=== PATIENT | male | born 1960 | race Caucasian/White ===

== ENCOUNTER 2021-08-20 02:32 | Inpatient (IN) ==
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
[2021-08-20] MEDS ORDERED: ONDANSETRON 4 MG/2 ML VIAL IV ONE (03:02)
[2021-08-20] MEDS ORDERED: HYDROmorphone 0.5 MG/0.5 ML SYRINGE IV ONE (03:02)
[2021-08-20] MEDS ORDERED: ACETAMINOPHEN 325 MG TABLET PO PRN (04:22)
[2021-08-20] MEDS ORDERED: ONDANSETRON 4 MG/2 ML VIAL IV PRN (04:22)
--- NOTE | 2021-08-20 04:26 | Internal Med History&Physical ---
HPI History of Present Illness Patient information: Note initiated : 08/20/21 at 4:22 am Service Date, if different from initiated Date: [] Patient: Saeid Ventura 61 y/o M admitted on 08/20/21 for Broken Femur. Chief Complaint: [] History of present illness: Mr. Ventura is a 61 year old male with a history of hypertension, hyperlipidemia, probable alcohol use disorder admitted for a hip fracture that occurred when the patient slipped and fell on ice. Review of system Constitutional: no fever, fatigue, or weight loss Eyes: no vision changes or pain Cardiovascular: no chest pain, no palpitations Respiratory: no cough or dyspnea Gastrointestinal: no abdominal pain, no nausea, vomiting, or diarrhea Genitourinary: no dysuria or difficulty voiding Musculoskeletal: positive for hip pain Integumentary: no skin lesion or wound Neurological: no focal weakness or numbness Psychiatric: no anxiety or depression Physical exam Head: Atraumatic, normal inspection. Eyes: normal appearance, no scleral icterus. Neck: full ROM Respiratory: no respiratory distress. Cardiovascular: normal rate and rhythm, S1, S2. GI/Abdominal: soft, nontender, no guarding. Extremities: full range of motion, nontender. Neurological: CN II-XII intact, intact motor, intact sensation. Psychiatric: normal mood. Skin: warm, normal color PFSH PFSH All Active Problems (Updated 08/20/21 @ 10:51 by Krystal Miller) Closed fracture of right hip (Acute) MEDS/ALLERGIES Home Medications and Allergies Home Medications Medication Instructions Recorded Confirmed Type amitriptyline 50 mg tablet 50 mg PO BID 08/20/21 08/20/21 History amlodipine 10 mg tablet 10 mg PO QDAY 08/20/21 08/20/21 History aspirin 81 mg tablet,delayed 81 mg PO BID #60 tab 08/20/21 Rx release atorvastatin 80 mg tablet 80 mg PO QDAY 08/20/21 08/20/21 History bupropion HCl 150 mg 24 hr tablet, 150 mg PO DAILY 08/20/21 08/20/21 History extended release carvedilol phosphate 40 mg 40 mg PO QDAY 08/20/21 08/20/21 History capsule,[id number] multiphase (Coreg CR) cyclobenzaprine 5 mg tablet 5 mg PO BID 08/20/21 08/20/21 History gabapentin 300 mg capsule 300 mg PO TID 08/20/21 08/20/21 History meloxicam 15 mg tablet 15 mg PO QDAY 08/20/21 08/20/21 History oxycodone-acetaminophen 10 mg-325 1 tab PO Q4H PRN #60 tab 08/20/21 Rx mg tablet Allergies Allergy/AdvReac Type Severity Reaction Status Date / Time lisinopril Allergy Severe Swelling Verified 08/20/21 10:51 of Lip/Tongue/Throat Penicillins Allergy Intermediate Unknown Verified 08/20/21 10:51 EXAM Constitutional Vitals: Temp Pulse Resp BP Pulse Ox 97.6 F 94 H 20 158/75 96 08/20/21 02:38 08/20/21 04:07 08/20/21 02:38 08/20/21 04:01 08/20/21 04:07 A/P Narrative A/P Narrative: Assessment: 61 year old male with a history of hypertension, hyperlipidemia, probable alcohol use disorder admitted for a hip fracture that occurred when the patient slipped and fell on ice. #Hip fracture #Hypertension #Hyperlipidemia #Possible alcohol use disorder Plan -Admission CBC, CMP, INR. -Analgesics prn. -IV fluid. -Bowel regimen. -Medication reconciliation. -Ortho consult. -PT consult. -Diet per surgery. -Monitor for signs of alcohol withdrawal. -DVT ppx: SCD for now -Code status: Full -Disposition: home w/ home health vs SNF Time Spent With Patient Time: Total time spent is greater than 50% in coordination of care (as documented) at patient's floor/unit and/or counseling patient:
[2021-08-20] MEDS: LACTATED RINGERS 1,000 ML IV SCH (05:27)
[2021-08-20] MEDS: 0.9 % SODIUM CHLORIDE 10 ML SYRINGE IV SCH ×3 (05:28→22:53)
[2021-08-20 05:36] LABS: Hematocrit 35.6 % (40.1-51.0); Hemoglobin 12.6 g/dL (13.7-17.5); Mean Cell Volume 91.5 fL (80.0-100.0); Mean Corpuscular HGB Conc 35.4 g/dL (31.0-36.0); Mean Platelet Volume 10.1 fL (7.4-10.4); Platelet Count 244 K/mcL (140-440); RBC 3.89 M/mcL (4.63-6.08); Red Cell Distribution Width 12.7 % (11.5-14.5); WBC 8.1 K/mcL (4.5-11.0)
[2021-08-20 05:51] LABS: INR 0.9 (0.9-1.1); Prothrombin Time 12.6 sec (11.9-14.5)
[2021-08-20 05:56] LABS: ALT/SGPT 14 U/L (<40); AST/SGOT 17 U/L (<40); Albumin 4.1 gm/dL (3.2-5.2); Albumin/Globulin Ratio 1.8 (1.0-2.3); Alkaline Phosphatase 106 U/L (39-117); Bilirubin,Direct < 0.2 mg/dL (0-0.3); Bilirubin,Total 0.3 mg/dL (0.1-1.0); Blood Urea Nitrogen 12 mg/dL (6-20); Calcium 8.4 mg/dL (8.6-10.4); Carbon Dioxide 25 mmol/L (22-30); Chloride 104 mmol/L (96-108); Globulin 2.3 gm/dL (2.2-3.7); Glomerular Filtration Rate 109; Glucose 81 mg/dL (70-105); Lactate Dehydrogenase 176 U/L (135-225); Phosphorous 3.3 mg/dL (2.5-4.5); Triglycerides 243 mg/dL (<150); Uric Acid 7.3 mg/dL (2.5-8.0)
[2021-08-20 06:32] LABS: Band Neutrophils % 7 % (0-10); Basophils % (Manual) 1 % (0-2); Eosinophils % (Manual) 4 % (0-7); Lymphocytes % 21 % (15-49); Monocytes % (Manual) 6 % (1-12); Platelet Estimate NORMAL (Normal); RBC Morphology NORMAL (Normal); Segmented Neutrophils % 61 % (38-78)
[2021-08-20] MEDS: HYDROmorphone 0.5 MG/0.5 ML SYRINGE IV PRN ×2 (07:21→13:16)
[2021-08-20] MEDS: HYDROcodone/APAP 5/325MG TABLET PO PRN (07:22)
[2021-08-20] MEDS ORDERED: MAGNESIUM SULFATE 2 GM/50 ML BAG IV ONE ×2 (08:31→16:55)
[2021-08-20] MEDS: POLYETHYLENE GLYCOL 3350 17 GM PACKET PO SCH (11:33)
[2021-08-20] MEDS: SENNOSIDES 1 TABLET PO SCH ×2 (11:34→22:53)
[2021-08-20] MEDS ORDERED: SCOPOLAMINE 1 PATCH PATCH TOPICAL PRN (11:45)
[2021-08-20] MEDS ORDERED: IPRATROPIUM/ALBUTEROL 3 ML AMPUL.NEB NEB PRN ×2 (11:45→20:04)
[2021-08-20] MEDS ORDERED: ceFAZolin 2 GM in DEXTROSE 5% IN WATER 50 ML IV SCH ×2 (16:45→17:00)
[2021-08-20] MEDS ORDERED: BENZOCAINE/MENTHOL 1 LOZENGE PO PRN (16:52)
[2021-08-20] MEDS ORDERED: LIDOCAINE HCL/PF 100 MG/5 ML SYRINGE IV ONE (16:55)
[2021-08-20] MEDS ORDERED: MIDAZOLAM 2 MG/2 ML VIAL ONE (16:55)
[2021-08-20] MEDS ORDERED: DEXAMETHASONE 10 MG/ML VIAL ONE (16:55)
[2021-08-20] MEDS ORDERED: GLYCOPYRROLATE 0.2 MG/ML VIAL IV ONE (16:55)
[2021-08-20] MEDS ORDERED: PHENYLephrine 1 MG/10 ML SYRINGE (ANEST) ONE (16:55)
[2021-08-20] MEDS ORDERED: KETAMINE 50 MG/ML Syringe (ANEST) IV ONE (16:55)
[2021-08-20] MEDS ORDERED: fentaNYL 100 MCG/2 ML VIAL IV ONE (16:55)
[2021-08-20] MEDS ORDERED: ePHEDrine 50 MG/5 ML SYRINGE (ANEST) IV ONE (16:55)
[2021-08-20] MEDS ORDERED: PROPOFOL 200 MG/20 ML VIAL IV ONE (16:55)
[2021-08-20] MEDS ORDERED: ONDANSETRON 4 MG/2 ML VIAL ONE (16:55)
[2021-08-20] MEDS ORDERED: KETOROLAC 30 MG/ML VIAL IV PRN (16:57)
[2021-08-20] MEDS ORDERED: NALOXONE HCL 0.4 MG/ML VIAL IV PRN ×2 (16:57→20:16)
--- NOTE | 2021-08-20 20:05 | Discharge Plan ---
Discharge Plan Patient/Caregiver Discharge Instructions Activity: other Diet: Regular Diet Activity Restrictions/Additional Instructions: Toe touch weight bearing Prescriptions: New oxycodone-acetaminophen 10-325 mg tablet 1 tab PO Q4H PRN (Reason: pain) Qty: 60 0RF aspirin 81 mg tablet,delayed release (DR/EC) 81 mg PO BID Qty: 60 0RF No Action atorvastatin 80 mg tablet 80 mg PO QDAY 0RF meloxicam 15 mg tablet 15 mg PO QDAY 0RF amitriptyline 50 mg tablet 50 mg PO BID 0RF amlodipine 10 mg tablet 10 mg PO QDAY 0RF gabapentin 300 mg capsule 300 mg PO TID 0RF cyclobenzaprine 5 mg tablet 5 mg PO BID 0RF bupropion HCl 150 mg tablet extended release 24 hr 150 mg PO DAILY 0RF carvedilol phosphate [Coreg CR] 40 mg capsule, ER multiphase 24 hr 40 mg PO QDAY 0RF Follow Up Plan Follow up with: Dayday Lema PA-C [Primary Care Provider] - Eitan Perez MD [Physician] - Patient Disposition: Home, Self-Care Prognosis: Fair Discharge Orders: Discharge Order (Routine); Ordered 08/23/21 Ordered By: Eitan Perez
[2021-08-20] MEDS ORDERED: METHOCARBAMOL 1,000 MG/10 ML VIAL IV PRN (20:16)
[2021-08-20] MEDS ORDERED: LACTATED RINGERS 250 ML IV PRN (20:16)
[2021-08-20] MEDS ORDERED: ACETAMINOPHEN 1,000 MG/100 ML BAG IV ONE ×2 (20:16→20:42)
[2021-08-20] MEDS ORDERED: fentaNYL 100 MCG/2 ML VIAL IV PRN (20:16)
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
[2021-08-20] MEDS ORDERED: LACTATED RINGERS 1,000 ML IV SCH (20:30)
[2021-08-20] MEDS ORDERED: ETHYL ALCOHOL 30 ML ORAL.SOL PO PRN (21:02)
[2021-08-20] MEDS: ENOXAPARIN 30 MG/0.3 ML SYRINGE SQ SCH (22:53)
[2021-08-20] MEDS: morphine 4 MG/ML VIAL IV PRN (22:57)
[2021-08-21] MEDS: ceFAZolin 1 GM VIAL IV SCH ×2 (00:15→08:47)
[2021-08-21] MEDS: LACTATED RINGERS 1,000 ML IV SCH ×4 (00:16→22:36)
[2021-08-21] MEDS: morphine 4 MG/ML VIAL IV PRN ×2 (03:11→07:46)
--- NOTE | 2021-08-21 03:35 | XRay Report ---
CLINICAL INFORMATION: ORIF right intertrochanteric fracture COMPARISON: Preprocedure x-ray 2021 FINDINGS: Comminuted intertrochanteric fracture of the right hip has been reduced to near anatomic alignment and transfixed by gamma nail and cerclage wires. Both SI and hip joints are normal with alignment arthritic change. There is mild degeneration of the patellofemoral tibiofemoral joint. Soft tissue swelling as expected in the surgical site IMPRESSION: ORIF right intertrochanteric fracture in near anatomic alignment. Interpreted and Authenticated by: Dayday Ling 08/21/21
[2021-08-21] MEDS: 0.9 % SODIUM CHLORIDE 10 ML SYRINGE IV SCH ×3 (04:52→20:29)
--- NOTE | 2021-08-21 05:11 | XRay Report ---
CLINICAL INFORMATION: ORIF intertrochanteric fracture right hip. COMPARISON: None FINDINGS: Comminuted intertrochanteric fracture of the right hip has been reduced to near anatomic alignment and transfixed by gamma nail and cerclage wires. IMPRESSION: ORIF right intertrochanteric fracture in near anatomic alignment. Total fluoroscopy time 34.7 minutes. Interpreted and Authenticated by: Dayday Ling 08/21/21
[2021-08-21 06:27] LABS: Hematocrit 30.8 % (40.1-51.0); Hemoglobin 10.7 g/dL (13.7-17.5)
--- NOTE | 2021-08-21 07:06 | EKG ---
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
[2021-08-21] MEDS: POLYETHYLENE GLYCOL 3350 17 GM PACKET PO SCH (08:48)
[2021-08-21] MEDS: SENNOSIDES 1 TABLET PO SCH ×2 (08:49→20:29)
[2021-08-21] MEDS: ENOXAPARIN 30 MG/0.3 ML SYRINGE SQ SCH ×2 (08:52→20:29)
--- NOTE | 2021-08-21 09:54 | Orthopedic Progress Note ---
SUBJECTIVE Subjective Patient information: Note initiated : 08/21/21 at 9:50 am Service Date, if different from initiated Date: [] Patient: Saeid Ventura 61 y/o M admitted on 08/20/21 for Broken Femur. Chief Complaint: [] Principal diagnosis: POD 1 s/p right hip ORIF Interval history: Patient is POD 1 s/p right hip ORIF. He is doing well other then some pain in the right hip that is controlled on pain meds. He was up with PT today and using his walker. He denies any numbness/tingling, weakness, fever, HICKEY, SOB, or any other acute symptoms. Constitutional Vitals: Vital Signs Temp Pulse Resp BP Pulse Ox 97.8 F 98 H 12 128/76 91 08/21/21 08:00 08/21/21 08:00 08/21/21 08:00 08/21/21 08:00 08/21/21 08:00 Period Temp Pulse Resp BP Sys/Chavez Pulse Ox Last 24 Hr 96.6 F-97.8 F 90-105 10-20 99-150/66-84 87-99 Intake and Output 08/20/21 08/21/21 08/21/21 21:59 05:59 13:59 Intake Total 3500 200 Output Total 1100 500 Balance 2400 -300 Weight 195 lb 1 oz Intake & Output: Intake & Output 08/20/21 08/21/21 08/21/21 21:59 05:59 13:59 Intake Total 3500 200 Output Total 1100 500 Balance 2400 -300 Weight 195 lb 1 oz Intake: IV 1200 Lactated Ringers 1,000 ml @ 75 1000 mls/hr IV .[id number] AUBREY Rx#: [id number] Ancef 2 gm In Dextrose 5% in 50 Water 50 ml @ 100 mls/hr IV PREOP AUBREY Rx#:[id number] Oral 200 IV - Manual Only 2300 Output: Urine Catheter Amount 700 Straight 700 Void Amount 500 Estimated Blood Loss 400 Other: Meal Breakfast Percent of Meal Consumed 100% Feeding Ability Independent Urine Appearance Clear Clear Straight Clear Urine Color Bright Yellow Bright Yellow Straight Bright Yellow Urine Odor Normal Exam: Exam of the RLE reveals healing wounds with dressings dry and in place, NVI in the RLE, no calf tenderness bilateral lower legs. OBJ DATA Labs CBC & Chem 7: 08/21/21 05:14 08/20/21 04:55 Labs: Abnormal Lab Results 08/21/21 08/20/21 08/20/21 05:14 04:55 04:55 RBC 3.89 L Hgb 10.7 L 12.6 L Hct 30.8 L 35.6 L Creatinine 0.6 L Calcium 8.4 L Magnesium 1.5 L Triglycerides 243 H Meds: Medications Acetaminophen (Acetaminophen 325 Mg Tablet) 650 mg PO Q6HP PRN; Protocol PRN Reason: Per Pain Protocol/Fever > 101 Hydrocodone Bitart/Acetaminophen (Hydrocodone/Apap 5/325mg Tablet) 1 tab PO Q4HP PRN; Protocol PRN Reason: Per Pain Protocol Last Admin: 08/20/21 07:22 Dose: 1 tab Documented by: Alcohol (Ethyl Alcohol 30 Ml Oral.Elsie) 30 ml PO HSP PRN PRN Reason: Anxiety Enoxaparin Sodium (Enoxaparin 30 Mg/0.3 Ml Syringe) 30 mg SQ BID [facility] Last Admin: 08/21/21 08:52 Dose: 30 mg Documented by: Lactated Ringer's (Lactated Ringers) 1,000 mls @ 75 mls/hr IV .[id number] [facility] Last Admin: 08/21/21 07:11 Dose: Not Given Documented by: Ketorolac Tromethamine (Ketorolac 30 Mg/Ml Vial) 30 mg IV Q6HP PRN; Protocol PRN Reason: Per Pain Protocol Stop: 08/22/21 17:00 Methocarbamol (Methocarbamol 1,000 Mg/10 Ml Vial) 750 mg IV Q6HP PRN PRN Reason: Muscle Spasm Morphine Sulfate (Morphine 4 Mg/Ml Vial) 0 mg IV Q1HP PRN; Protocol PRN Reason: Per Pain Protocol Last Admin: 08/21/21 07:46 Dose: 4 mg Documented by: Naloxone HCl (Naloxone Hcl 0.4 Mg/Ml Vial) 0.1 mg IV Q2MIN PRN PRN Reason: Opiate Reversal Ondansetron HCl (Ondansetron 4 Mg/2 Ml Vial) 4 mg IV Q6HP PRN PRN Reason: Nausea And Vomiting Polyethylene Glycol (Polyethylene Glycol 3350 17 Gm Packet) 17 gm PO DAILY [facility] Last Admin: 08/21/21 08:48 Dose: Not Given Documented by: Senna (Sennosides 1 Tablet) 2 tab PO BID [facility] Last Admin: 08/21/21 08:49 Dose: Not Given Documented by: Sodium Chloride (0.9 % Sodium Chloride 10 Ml Syringe) 10 ml IV Q8 [facility] Last Admin: 08/21/21 04:52 Dose: Not Given Documented by: Throat Lozenges (Benzocaine/Menthol 1 Lozenge) 1 lozenge PO PRN PRN PRN Reason: Sore Throat Impressions Impression: POD 1 s/p right hip ORIF A/P Narrative A/P Narrative: POD 1 s/p right hip ORIF 1. social work consult for discharge likely requiring SNF due to home living situations and weight bearing status 2. Foot flat weight bearing on the RLE. 3. PT for assistance with walking and exercises 4. Hospitalists for discharge to SNF and medical management 5. Continue DVT prophylaxis per hospitalists Time Spent With Patient Time: Total time spent is greater than 50% in coordination of care (as documented) at patient's floor/unit and/or counseling patient:
[2021-08-21] MEDS: HYDROcodone/APAP 5/325MG TABLET PO PRN ×2 (15:29→19:40)
--- NOTE | 2021-08-21 16:34 | Internal Med Progress Note ---
SUBJECTIVE Subjective Patient information: Note initiated : 08/21/21 at 4:33 pm Service Date, if different from initiated Date: [] Patient: Saeid Ventura 61 y/o M admitted on 08/20/21 for Broken Femur. Chief Complaint: [] Interval history: Mr. Ventura is a 61 year old male with a history of hypertension, hyperlipidemia, probable alcohol use disorder admitted for a hip fracture that occurred when the patient slipped and fell on ice. 08/21 The patient underwent ORIF yesterday, restricted to toe touch for the right lower extremity. Will need SNF for rehab. On 3.5 L/min nasal canula oxygen this morning, weaned to 1.5 by the afternoon. Physical exam Head: Atraumatic, normal inspection. Eyes: normal appearance, no scleral icterus. Neck: full ROM Respiratory: no respiratory distress. Cardiovascular: normal rate and rhythm, S1, S2. GI/Abdominal: soft, nontender, no guarding. Extremities: right lower extremity surgical incision covered with clean bandage. Neurological: CN II-XII intact, intact motor, intact sensation. Psychiatric: normal mood. Skin: warm, normal color Constitutional Vitals: Vital Signs Temp Pulse Resp BP Pulse Ox 97.6 F 95 H 12 121/71 92 08/21/21 12:00 08/21/21 12:00 08/21/21 12:00 08/21/21 12:00 08/21/21 12:00 Period Temp Pulse Resp BP Sys/Chavez Pulse Ox Last 24 Hr 97.1 F-97.8 F 92-105 10-16 99-150/66-84 87-99 Intake and Output 08/21/21 08/21/21 08/21/21 05:59 13:59 21:59 Intake Total 200 1000 Output Total 500 350 Balance -300 650 Weight 88.479 kg Patient Weight 08/22/21 05:59 Weight 88.479 kg Intake & Output: Intake & Output 08/21/21 08/21/21 08/21/21 05:59 13:59 21:59 Intake Total 200 1000 Output Total 500 350 Balance -300 650 Weight 88.479 kg Intake: IV 1000 Lactated Ringers 1,000 ml @ 75 1000 mls/hr IV .[id number] [facility] Rx#: [id number] Oral 200 Output: Void Amount 500 350 Other: Meal Lunch Percent of Meal Consumed 75% Feeding Ability Independent Urine Appearance Clear Clear Urine Color Bright Yellow Dark Yellow Urine Odor Normal Normal OBJ DATA Labs CBC & Chem 7: 08/21/21 05:14 08/20/21 04:55 Labs: Abnormal Lab Results 08/21/21 08/20/21 08/20/21 05:14 04:55 04:55 RBC 3.89 L Hgb 10.7 L 12.6 L Hct 30.8 L 35.6 L Creatinine 0.6 L Calcium 8.4 L Magnesium 1.5 L Triglycerides 243 H Meds: Medications Acetaminophen (Acetaminophen 325 Mg Tablet) 650 mg PO Q6HP PRN; Protocol PRN Reason: Per Pain Protocol/Fever > 101 Hydrocodone Bitart/Acetaminophen (Hydrocodone/Apap 5/325mg Tablet) 1 tab PO Q4HP PRN; Protocol PRN Reason: Per Pain Protocol Last Admin: 08/21/21 15:29 Dose: 1 tab Documented by: Alcohol (Ethyl Alcohol 30 Ml Oral.Elsie) 30 ml PO HSP PRN PRN Reason: Anxiety Enoxaparin Sodium (Enoxaparin 30 Mg/0.3 Ml Syringe) 30 mg SQ BID [facility] Last Admin: 08/21/21 08:52 Dose: 30 mg Documented by: Lactated Ringer's (Lactated Ringers) 1,000 mls @ 75 mls/hr IV .[id number] [facility] Last Admin: 08/21/21 13:41 Dose: 75 mls/hr Documented by: Ketorolac Tromethamine (Ketorolac 30 Mg/Ml Vial) 30 mg IV Q6HP PRN; Protocol PRN Reason: Per Pain Protocol Stop: 08/22/21 17:00 Methocarbamol (Methocarbamol 1,000 Mg/10 Ml Vial) 750 mg IV Q6HP PRN PRN Reason: Muscle Spasm Morphine Sulfate (Morphine 4 Mg/Ml Vial) 0 mg IV Q1HP PRN; Protocol PRN Reason: Per Pain Protocol Last Admin: 08/21/21 07:46 Dose: 4 mg Documented by: Naloxone HCl (Naloxone Hcl 0.4 Mg/Ml Vial) 0.1 mg IV Q2MIN PRN PRN Reason: Opiate Reversal Ondansetron HCl (Ondansetron 4 Mg/2 Ml Vial) 4 mg IV Q6HP PRN PRN Reason: Nausea And Vomiting Polyethylene Glycol (Polyethylene Glycol 3350 17 Gm Packet) 17 gm PO DAILY [facility] Last Admin: 08/21/21 08:48 Dose: Not Given Documented by: Senna (Sennosides 1 Tablet) 2 tab PO BID [facility] Last Admin: 08/21/21 08:49 Dose: Not Given Documented by: Sodium Chloride (0.9 % Sodium Chloride 10 Ml Syringe) 10 ml IV Q8 [facility] Last Admin: 08/21/21 13:03 Dose: Not Given Documented by: Throat Lozenges (Benzocaine/Menthol 1 Lozenge) 1 lozenge PO PRN PRN PRN Reason: Sore Throat A/P Narrative A/P Narrative: Assessment: 61 year old male with a history of hypertension, hyperlipidemia, probable alcohol use disorder admitted for a hip fracture that occurred when the patient slipped and fell on ice. #Hip fracture s/p ORIF 08/21/21 #Hypertension #Hyperlipidemia #Possible alcohol use disorder Plan -Analgesics prn. -Bowel regimen. -Continue essential home medications. -Ortho following. -PT following. -Regular diet. -Monitor for signs of alcohol withdrawal. -DVT ppx: Lovenox SQ -Code status: Full -Disposition: SNF for rehab, DVT prophylaxis for 28 days. Time Spent With Patient Time: Total time spent is greater than 50% in coordination of care (as documented) at patient's floor/unit and/or counseling patient: QUALITY VTE Deep Vein Thrombosis/Pulmonary Embolism Present on Admission: No
[2021-08-21] MEDS: METHOCARBAMOL 1,000 MG/10 ML VIAL IV PRN (20:28)
[2021-08-22] MEDS: HYDROcodone/APAP 5/325MG TABLET PO PRN ×4 (00:21→16:32)
[2021-08-22] MEDS: LACTATED RINGERS 1,000 ML IV SCH ×5 (02:55→21:32)
[2021-08-22] MEDS: 0.9 % SODIUM CHLORIDE 10 ML SYRINGE IV SCH ×3 (05:28→20:49)
[2021-08-22] MEDS: SENNOSIDES 1 TABLET PO SCH ×2 (09:42→20:49)
[2021-08-22] MEDS: ENOXAPARIN 30 MG/0.3 ML SYRINGE SQ SCH ×2 (09:43→20:49)
[2021-08-22] MEDS: POLYETHYLENE GLYCOL 3350 17 GM PACKET PO SCH (09:45)
--- NOTE | 2021-08-22 10:21 | Internal Med Progress Note ---
SUBJECTIVE Subjective Patient information: Note initiated : 08/22/21 at 10:18 am Service Date, if different from initiated Date: [] Patient: Saeid Ventura 61 y/o M admitted on 08/20/21 for Broken Femur. Chief Complaint: [] Principal diagnosis: POD 1 s/p right hip ORIF Interval history: Mr. Ventura is a 61 year old male with a history of hypertension, hyperlipidemia, probable alcohol use disorder admitted for a hip fracture that occurred when the patient slipped and fell on ice. 08/21 The patient underwent ORIF yesterday, restricted to toe touch for the right lower extremity. Will need SNF for rehab. On 3.5 L/min nasal canula oxygen this morning, weaned to 1.5 by the afternoon. 08/22 Pain adequately controlled, on room air. Awaiting placement. Physical exam Head: Atraumatic, normal inspection. Eyes: normal appearance, no scleral icterus. Neck: full ROM Respiratory: no respiratory distress. Cardiovascular: normal rate and rhythm, S1, S2. GI/Abdominal: soft, nontender, no guarding. Extremities: right lower extremity surgical incision covered with clean bandage. Neurological: CN II-XII intact, intact motor, intact sensation. Psychiatric: normal mood. Skin: warm, normal color Constitutional Vitals: Vital Signs Temp Pulse Resp BP Pulse Ox 97.1 F 92 H 16 126/78 94 08/22/21 07:45 08/22/21 07:45 08/22/21 07:45 08/22/21 07:45 08/22/21 07:45 Period Temp Pulse Resp BP Sys/Chavez Pulse Ox Last 24 Hr 97.1 F-99.3 F 89-102 12-18 113-147/70-82 88-94 Intake and Output 08/21/21 08/22/21 08/22/21 21:59 05:59 13:59 Intake Total 240 1112 Output Total 775 775 Balance -535 337 Weight 92.351 kg Intake & Output: Intake & Output 08/21/21 08/22/21 08/22/21 21:59 05:59 13:59 Intake Total 240 1112 Output Total 775 775 Balance -535 337 Weight 92.351 kg Intake: IV 992 Lactated Ringers 1,000 ml @ 75 992 mls/hr IV .[id number] [facility] Rx#: [id number] Oral 240 120 Output: Void Amount 775 775 Other: Meal Dinner Percent of Meal Consumed 95% Feeding Ability Independent Urine Appearance Clear Clear Urine Color Dark Yellow Dark Yellow OBJ DATA Labs CBC & Chem 7: 08/21/21 05:14 08/20/21 04:55 Labs: Abnormal Lab Results 08/21/21 08/20/21 08/20/21 05:14 04:55 04:55 RBC 3.89 L Hgb 10.7 L 12.6 L Hct 30.8 L 35.6 L Creatinine 0.6 L Calcium 8.4 L Magnesium 1.5 L Triglycerides 243 H Meds: Medications Acetaminophen (Acetaminophen 325 Mg Tablet) 650 mg PO Q6HP PRN; Protocol PRN Reason: Per Pain Protocol/Fever > 101 Hydrocodone Bitart/Acetaminophen (Hydrocodone/Apap 5/325mg Tablet) 1 tab PO Q4HP PRN; Protocol PRN Reason: Per Pain Protocol Last Admin: 08/22/21 09:47 Dose: 1 tab Documented by: Alcohol (Ethyl Alcohol 30 Ml Oral.Elsie) 30 ml PO HSP PRN PRN Reason: Anxiety Enoxaparin Sodium (Enoxaparin 30 Mg/0.3 Ml Syringe) 30 mg SQ BID [facility] Last Admin: 08/22/21 09:43 Dose: 30 mg Documented by: Lactated Ringer's (Lactated Ringers) 1,000 mls @ 75 mls/hr IV .[id number] [facility] Last Admin: 08/22/21 09:45 Dose: Not Given Documented by: Ketorolac Tromethamine (Ketorolac 30 Mg/Ml Vial) 30 mg IV Q6HP PRN; Protocol PRN Reason: Per Pain Protocol Stop: 08/22/21 17:00 Methocarbamol (Methocarbamol 1,000 Mg/10 Ml Vial) 750 mg IV Q6HP PRN PRN Reason: Muscle Spasm Last Admin: 08/21/21 20:28 Dose: 750 mg Documented by: Morphine Sulfate (Morphine 4 Mg/Ml Vial) 0 mg IV Q1HP PRN; Protocol PRN Reason: Per Pain Protocol Last Admin: 08/21/21 07:46 Dose: 4 mg Documented by: Naloxone HCl (Naloxone Hcl 0.4 Mg/Ml Vial) 0.1 mg IV Q2MIN PRN PRN Reason: Opiate Reversal Ondansetron HCl (Ondansetron 4 Mg/2 Ml Vial) 4 mg IV Q6HP PRN PRN Reason: Nausea And Vomiting Polyethylene Glycol (Polyethylene Glycol 3350 17 Gm Packet) 17 gm PO DAILY [facility] Last Admin: 08/22/21 09:45 Dose: Not Given Documented by: Senna (Sennosides 1 Tablet) 2 tab PO BID [facility] Last Admin: 08/22/21 09:42 Dose: 2 tab Documented by: Sodium Chloride (0.9 % Sodium Chloride 10 Ml Syringe) 10 ml IV Q8 [facility] Last Admin: 08/22/21 05:28 Dose: 10 ml Documented by: Throat Lozenges (Benzocaine/Menthol 1 Lozenge) 1 lozenge PO PRN PRN PRN Reason: Sore Throat A/P Narrative A/P Narrative: Assessment: 61 year old male with a history of hypertension, hyperlipidemia, probable alcohol use disorder admitted for a hip fracture that occurred when the patient slipped and fell on ice. #Hip fracture s/p ORIF 08/21/21 #Hypertension #Hyperlipidemia #Possible alcohol use disorder Plan -Analgesics prn. -Bowel regimen. -Continue important home medications. -PT following. -Regular diet. -DVT ppx: Lovenox SQ -Code status: Full -Disposition: SNF for rehab, DVT prophylaxis at discharge. Time Spent With Patient Time: Total time spent is greater than 50% in coordination of care (as documented) at patient's floor/unit and/or counseling patient: QUALITY VTE Deep Vein Thrombosis/Pulmonary Embolism Present on Admission: No
[2021-08-22] MEDS: METHOCARBAMOL 1,000 MG/10 ML VIAL IV PRN ×2 (13:15→20:50)
--- NOTE | 2021-08-22 13:29 | Internal Med Progress Note ---
SUBJECTIVE Subjective Patient information: Note initiated : 08/22/21 at 1:27 pm Service Date, if different from initiated Date: [] Patient: Saeid Ventura 61 y/o M admitted on 08/20/21 for Broken Femur. Chief Complaint: [] Principal diagnosis: POD 1 s/p right hip ORIF Interval history: Mr. Ventura is a 61 year old male with a history of hypertension, hyperlipidemia, probable alcohol use disorder admitted for a hip fracture that occurred when the patient slipped and fell on ice. 08/21 The patient underwent ORIF yesterday, restricted to toe touch for the right lower extremity. Will need SNF for rehab. On 3.5 L/min nasal canula oxygen this morning, weaned to 1.5 by the afternoon. 08/22 Pain adequately controlled, on room air. Awaiting placement. 08/23 Constitutional Vitals: Vital Signs Temp Pulse Resp BP Pulse Ox 97.6 F 84 18 144/80 92 08/22/21 11:45 08/22/21 11:45 08/22/21 11:45 08/22/21 11:45 08/22/21 11:45 Period Temp Pulse Resp BP Sys/Chavez Pulse Ox Last 24 Hr 97.1 F-99.3 F 84-102 12-18 113-147/70-82 91-94 Intake and Output 08/21/21 08/22/21 08/22/21 21:59 05:59 13:59 Intake Total 240 1112 600 Output Total 564 415 6563 Balance -535 337 -700 Weight 92.351 kg Intake & Output: Intake & Output 08/21/21 08/22/21 08/22/21 21:59 05:59 13:59 Intake Total 240 1112 600 Output Total 650 043 4031 Balance -535 337 -700 Weight 92.351 kg Intake: IV 992 Lactated Ringers 1,000 ml @ 75 992 mls/hr IV .[id number] [facility] Rx#: [id number] Oral 240 120 600 Output: Void Amount 983 492 6656 Other: Meal Dinner Lunch Percent of Meal Consumed 95% 100% Feeding Ability Independent Independent Urine Appearance Clear Clear Clear Urine Color Dark Yellow Dark Yellow Dark Yellow Urine Odor Normal Exam: General: Alert, Awake, No acute Distress Eyes/N/T: EOMI, Head/Neck: neck supple, CV: RRR, No murmurs, n Pulm: Clear b/l, no wheezing/rhonchi/rales Abd: soft, nontender, +BS x4 Ext: no clubbing/cyanosis/edema Neuro: Alert, no focal deficits, moves all extremities, Skin: warm/dry OBJ DATA Labs CBC & Chem 7: 08/21/21 05:14 08/20/21 04:55 Labs: Abnormal Lab Results 08/21/21 08/20/21 08/20/21 05:14 04:55 04:55 RBC 3.89 L Hgb 10.7 L 12.6 L Hct 30.8 L 35.6 L Creatinine 0.6 L Calcium 8.4 L Magnesium 1.5 L Triglycerides 243 H Meds: Medications Acetaminophen (Acetaminophen 325 Mg Tablet) 650 mg PO Q6HP PRN; Protocol PRN Reason: Per Pain Protocol/Fever > 101 Hydrocodone Bitart/Acetaminophen (Hydrocodone/Apap 5/325mg Tablet) 1 tab PO Q4HP PRN; Protocol PRN Reason: Per Pain Protocol Last Admin: 08/22/21 09:47 Dose: 1 tab Documented by: Alcohol (Ethyl Alcohol 30 Ml Oral.Elsie) 30 ml PO HSP PRN PRN Reason: Anxiety Enoxaparin Sodium (Enoxaparin 30 Mg/0.3 Ml Syringe) 30 mg SQ BID [facility] Last Admin: 08/22/21 09:43 Dose: 30 mg Documented by: Lactated Ringer's (Lactated Ringers) 1,000 mls @ 75 mls/hr IV .[id number] [facility] Last Admin: 08/22/21 09:45 Dose: Not Given Documented by: Ketorolac Tromethamine (Ketorolac 30 Mg/Ml Vial) 30 mg IV Q6HP PRN; Protocol PRN Reason: Per Pain Protocol Stop: 08/22/21 17:00 Methocarbamol (Methocarbamol 1,000 Mg/10 Ml Vial) 750 mg IV Q6HP PRN PRN Reason: Muscle Spasm Last Admin: 08/22/21 13:15 Dose: 750 mg Documented by: Morphine Sulfate (Morphine 4 Mg/Ml Vial) 0 mg IV Q1HP PRN; Protocol PRN Reason: Per Pain Protocol Last Admin: 08/21/21 07:46 Dose: 4 mg Documented by: Naloxone HCl (Naloxone Hcl 0.4 Mg/Ml Vial) 0.1 mg IV Q2MIN PRN PRN Reason: Opiate Reversal Ondansetron HCl (Ondansetron 4 Mg/2 Ml Vial) 4 mg IV Q6HP PRN PRN Reason: Nausea And Vomiting Polyethylene Glycol (Polyethylene Glycol 3350 17 Gm Packet) 17 gm PO DAILY [facility] Last Admin: 08/22/21 09:45 Dose: Not Given Documented by: Senna (Sennosides 1 Tablet) 2 tab PO BID [facility] Last Admin: 08/22/21 09:42 Dose: 2 tab Documented by: Sodium Chloride (0.9 % Sodium Chloride 10 Ml Syringe) 10 ml IV Q8 [facility] Last Admin: 08/22/21 05:28 Dose: 10 ml Documented by: Throat Lozenges (Benzocaine/Menthol 1 Lozenge) 1 lozenge PO PRN PRN PRN Reason: Sore Throat A/P Narrative A/P Narrative: A: #Hip fracture: s/p ORIF (08/21/21) #Hypertension #Hyperlipidemia #Possible alcohol use disorder Plan: -Analgesics prn. -Bowel regimen. -Continue important home medications. -PT following. -Regular diet. -Disposition: SNF for rehab, DVT prophylaxis at discharge. 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
[2021-08-22] MEDS: morphine 4 MG/ML VIAL IV PRN (20:49)
[2021-08-23] MEDS: HYDROcodone/APAP 5/325MG TABLET PO PRN ×5 (00:38→21:50)
[2021-08-23] MEDS: 0.9 % SODIUM CHLORIDE 10 ML SYRINGE IV SCH ×3 (04:09→21:51)
[2021-08-23] MEDS: LACTATED RINGERS 1,000 ML IV SCH (04:38)
--- NOTE | 2021-08-23 07:34 | Internal Med Progress Note ---
SUBJECTIVE Subjective Patient information: Note initiated : 08/23/21 at 7:34 am Service Date, if different from initiated Date: [] Patient: Saeid Ventura 61 y/o M admitted on 08/20/21 for Broken Femur. Chief Complaint: [] Principal diagnosis: POD 1 s/p right hip ORIF Interval history: Mr. Ventura is a 61 year old male with a history of hypertension, hyperlipidemia, probable alcohol use disorder admitted for a hip fracture that occurred when the patient slipped and fell on ice. 08/21 The patient underwent ORIF yesterday, restricted to toe touch for the right lower extremity. Will need SNF for rehab. On 3.5 L/min nasal canula oxygen this morning, weaned to 1.5 by the afternoon. 08/22 Pain adequately controlled, on room air. Awaiting placement. 08/23 No overnight event or new complaints. Review of Systems: denies headache/fever/chills/nausea/vomiting/chest or abdominal pain/cough/dyspnea/diarrhea. Otherwise see above. Constitutional Vitals: Vital Signs Temp Pulse Resp BP Pulse Ox 97.6 F 100 H 18 161/89 93 08/23/21 03:28 08/23/21 03:28 08/23/21 03:28 08/23/21 03:28 08/23/21 03:28 Period Temp Pulse Resp BP Sys/Chavez Pulse Ox Last 24 Hr 96.9 F-97.9 F 84-100 16-18 107-161/62-89 90-94 Intake and Output 08/22/21 08/23/21 08/23/21 21:59 05:59 13:59 Intake Total 2948 1150 Output Total 1100 1950 Balance 1848 -800 Weight 92.624 kg Intake & Output: Intake & Output 08/22/21 08/23/21 08/23/21 21:59 05:59 13:59 Intake Total 2948 1150 Output Total 1100 1950 Balance 1848 -800 Weight 92.624 kg Intake: IV 1997 1000 Lactated Ringers 1,000 ml @ 75 1997 1000 mls/hr IV .[id number] [facility] Rx#: [id number] Oral 950 150 Output: Void Amount 1100 1950 Other: Meal Dinner Percent of Meal Consumed 50% Feeding Ability Independent Urine Appearance Clear Clear Urine Color Bright Yellow Pale Urine Odor Normal Exam: General: Alert, Awake, No acute Distress Eyes/N/T: EOMI, Head/Neck: neck supple, CV: RRR, No murmurs, n Pulm: Clear b/l, no wheezing/rhonchi/rales Abd: soft, nontender, +BS x4 Ext: no clubbing/cyanosis/edema Neuro: Alert, no focal deficits, moves all extremities, Skin: warm/dry OBJ DATA Labs CBC & Chem 7: 08/21/21 05:14 08/20/21 04:55 Labs: Abnormal Lab Results 08/21/21 05:14 Hgb 10.7 L Hct 30.8 L Meds: Medications Acetaminophen (Acetaminophen 325 Mg Tablet) 650 mg PO Q6HP PRN; Protocol PRN Reason: Per Pain Protocol/Fever > 101 Hydrocodone Bitart/Acetaminophen (Hydrocodone/Apap 5/325mg Tablet) 1 tab PO Q4HP PRN; Protocol PRN Reason: Per Pain Protocol Last Admin: 08/23/21 04:37 Dose: 1 tab Documented by: Alcohol (Ethyl Alcohol 30 Ml Oral.Elsie) 30 ml PO HSP PRN PRN Reason: Anxiety Enoxaparin Sodium (Enoxaparin 30 Mg/0.3 Ml Syringe) 30 mg SQ BID [facility] Last Admin: 08/22/21 20:49 Dose: 30 mg Documented by: Lactated Ringer's (Lactated Ringers) 1,000 mls @ 75 mls/hr IV .[id number] [facility] Last Admin: 08/23/21 04:38 Dose: 75 mls/hr Documented by: Methocarbamol (Methocarbamol 1,000 Mg/10 Ml Vial) 750 mg IV Q6HP PRN PRN Reason: Muscle Spasm Last Admin: 08/22/21 20:50 Dose: 750 mg Documented by: Morphine Sulfate (Morphine 4 Mg/Ml Vial) 0 mg IV Q1HP PRN; Protocol PRN Reason: Per Pain Protocol Last Admin: 08/22/21 20:49 Dose: 4 mg Documented by: Naloxone HCl (Naloxone Hcl 0.4 Mg/Ml Vial) 0.1 mg IV Q2MIN PRN PRN Reason: Opiate Reversal Ondansetron HCl (Ondansetron 4 Mg/2 Ml Vial) 4 mg IV Q6HP PRN PRN Reason: Nausea And Vomiting Polyethylene Glycol (Polyethylene Glycol 3350 17 Gm Packet) 17 gm PO DAILY [facility] Last Admin: 08/22/21 09:45 Dose: Not Given Documented by: Senna (Sennosides 1 Tablet) 2 tab PO BID [facility] Last Admin: 08/22/21 20:49 Dose: 2 tab Documented by: Sodium Chloride (0.9 % Sodium Chloride 10 Ml Syringe) 10 ml IV Q8 [facility] Last Admin: 08/23/21 04:09 Dose: 10 ml Documented by: Throat Lozenges (Benzocaine/Menthol 1 Lozenge) 1 lozenge PO PRN PRN PRN Reason: Sore Throat A/P Narrative A/P Narrative: A: #Hip fracture: s/p ORIF (08/21/21) #HTN/HLD: #Possible alcohol use disorder #Depression/anxiety: Plan: -Analgesics prn. -Bowel regimen. -Continue home norvasc/coreg/statin -PT following. 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
[2021-08-23] MEDS ORDERED: FUROSEMIDE 40 MG/4 ML VIAL IV ONE (08:58)
[2021-08-23] MEDS: ATORVASTATIN 40 MG TABLET PO SCH (09:32)
[2021-08-23] MEDS: CYCLOBENZAPRINE 10 MG TABLET PO SCH ×2 (09:32→21:49)
[2021-08-23] MEDS: GABAPENTIN 300 MG CAPSULE PO SCH ×3 (09:32→21:50)
[2021-08-23] MEDS: amLODIPine 10 MG TABLET PO SCH (09:33)
[2021-08-23] MEDS: AMITRIPTYLINE 25 MG TABLET PO SCH ×2 (09:34→21:49)
[2021-08-23] MEDS: SENNOSIDES 1 TABLET PO SCH ×2 (09:34→21:51)
[2021-08-23] MEDS: buPROPion 150 MG TAB.XL.24H PO SCH (09:35)
[2021-08-23] MEDS: POLYETHYLENE GLYCOL 3350 17 GM PACKET PO SCH (09:41)
[2021-08-23] MEDS: CARVEDILOL PHOSPHATE 40 MG PO SCH (09:41)
[2021-08-23] MEDS: morphine 4 MG/ML VIAL IV PRN (09:47)
[2021-08-23] MEDS: ENOXAPARIN 30 MG/0.3 ML SYRINGE SQ SCH ×2 (09:53→21:49)
[2021-08-23] MEDS: METHOCARBAMOL 1,000 MG/10 ML VIAL IV PRN (16:18)
[2021-08-23] MEDS ORDERED: diphenhydrAMINE 25 MG CAPSULE PO PRN (17:22)
[2021-08-23] MEDS: MELATONIN 3 MG TABLET PO SCH (21:50)
[2021-08-23] MEDS: CALCIUM CARBONATE 500 MG TAB.CHEW CHEWED PRN (22:26)
[2021-08-24] MEDS: 0.9 % SODIUM CHLORIDE 10 ML SYRINGE IV SCH ×3 (04:32→20:15)
[2021-08-24] MEDS: HYDROcodone/APAP 5/325MG TABLET PO PRN ×4 (04:32→20:13)
--- NOTE | 2021-08-24 07:27 | Internal Med Progress Note ---
SUBJECTIVE Subjective Patient information: Note initiated : 08/24/21 at 7:27 am Service Date, if different from initiated Date: [] Patient: Saeid Ventura 61 y/o M admitted on 08/20/21 for Broken Femur. Chief Complaint: [] Principal diagnosis: POD 1 s/p right hip ORIF Interval history: Mr. Ventura is a 61 year old male with a history of hypertension, hyperlipidemia, probable alcohol use disorder admitted for a hip fracture that occurred when the patient slipped and fell on ice. 08/21 The patient underwent ORIF yesterday, restricted to toe touch for the right lower extremity. Will need SNF for rehab. On 3.5 L/min nasal canula oxygen this morning, weaned to 1.5 by the afternoon. 08/22 Pain adequately controlled, on room air. Awaiting placement. 08/23 No overnight event or new complaints. 08/24 No new complaints overnight events. Patient feeling better today. Review of Systems: denies headache/fever/chills/nausea/vomiting/chest or abdominal pain/cough/dyspnea/diarrhea. Otherwise see above. Constitutional Vitals: Vital Signs Temp Pulse Resp BP Pulse Ox 97.7 F 99 H 20 117/76 93 08/24/21 06:48 08/24/21 04:00 08/24/21 06:48 08/24/21 06:48 08/24/21 06:48 Period Temp Pulse Resp BP Sys/Chavez Pulse Ox Last 24 Hr 96.8 F-98.6 F 94-114 18-20 88-146/57-84 92-98 Intake and Output 08/23/21 08/24/21 08/24/21 21:59 05:59 13:59 Intake Total 1500 350 Output Total 600 Balance 1500 -250 Weight 93.157 kg Intake & Output: Intake & Output 08/23/21 08/24/21 08/24/21 21:59 05:59 13:59 Intake Total 1500 350 Output Total 600 Balance 1500 -250 Weight 93.157 kg Intake: IV 1000 Lactated Ringers 1,000 ml @ 75 1000 mls/hr IV .[id number] [facility] Rx#: [id number] Oral 500 350 Output: Void Amount 600 Other: Meal Dinner Percent of Meal Consumed 100% Feeding Ability Independent Urine Appearance Clear Urine Color Dark Yellow Urine Odor Normal Stool Size Large Stool Color Brown Stool Consistency Formed # Bowel Movements 1 Exam: General: Alert, Awake, No acute Distress Eyes/N/T: EOMI, Head/Neck: neck supple, CV: RRR, No murmurs, n Pulm: Clear b/l, no wheezing/rhonchi/rales Abd: soft, nontender, +BS x4 Ext: no clubbing/cyanosis/edema Neuro: Alert, no focal deficits, moves all extremities, Skin: warm/dry OBJ DATA Labs CBC & Chem 7: 08/21/21 05:14 08/20/21 04:55 Meds: Medications Acetaminophen (Acetaminophen 325 Mg Tablet) 650 mg PO Q6HP PRN; Protocol PRN Reason: Per Pain Protocol/Fever > 101 Hydrocodone Bitart/Acetaminophen (Hydrocodone/Apap 5/325mg Tablet) 1 tab PO Q4HP PRN; Protocol PRN Reason: Per Pain Protocol Last Admin: 08/24/21 04:32 Dose: 1 tab Documented by: Alcohol (Ethyl Alcohol 30 Ml Oral.Elsie) 30 ml PO HSP PRN PRN Reason: Anxiety Amitriptyline HCl (Amitriptyline 25 Mg Tablet) 50 mg PO BID [facility] Last Admin: 08/23/21 21:49 Dose: 50 mg Documented by: Amlodipine Besylate (Amlodipine 10 Mg Tablet) 10 mg PO QDAY [facility] Last Admin: 08/23/21 09:33 Dose: 10 mg Documented by: Atorvastatin Calcium (Atorvastatin 40 Mg Tablet) 80 mg PO DAILY [facility] Last Admin: 08/23/21 09:32 Dose: 80 mg Documented by: Bupropion HCl (Bupropion 150 Mg Tab.Xl.24h) 150 mg PO DAILY [facility] Last Admin: 08/23/21 09:35 Dose: 150 mg Documented by: Calcium Carbonate/Glycine (Calcium Carbonate 500 Mg Tab.Chew) 1,000 mg CHEWED HSP PRN PRN Reason: Dyspepsia Last Admin: 08/23/21 22:26 Dose: 1,000 mg Documented by: Cyclobenzaprine HCl (Cyclobenzaprine 10 Mg Tablet) 5 mg PO BID [facility] Last Admin: 08/23/21 21:49 Dose: 5 mg Documented by: Diphenhydramine HCl (Diphenhydramine 25 Mg Capsule) 25 mg PO HSP PRN PRN Reason: Insomnia Enoxaparin Sodium (Enoxaparin 30 Mg/0.3 Ml Syringe) 30 mg SQ BID [facility] Last Admin: 08/23/21 21:49 Dose: 30 mg Documented by: Gabapentin (Gabapentin 300 Mg Capsule) 300 mg PO TID [facility] Last Admin: 08/23/21 21:50 Dose: 300 mg Documented by: Melatonin (Melatonin 3 Mg Tablet) 3 mg PO HS [facility] Last Admin: 08/23/21 21:50 Dose: 3 mg Documented by: Methocarbamol (Methocarbamol 1,000 Mg/10 Ml Vial) 750 mg IV Q6HP PRN PRN Reason: Muscle Spasm Last Admin: 08/23/21 16:18 Dose: 750 mg Documented by: Morphine Sulfate (Morphine 4 Mg/Ml Vial) 0 mg IV Q1HP PRN; Protocol PRN Reason: Per Pain Protocol Last Admin: 08/23/21 09:47 Dose: 4 mg Documented by: Naloxone HCl (Naloxone Hcl 0.4 Mg/Ml Vial) 0.1 mg IV Q2MIN PRN PRN Reason: Opiate Reversal Ondansetron HCl (Ondansetron 4 Mg/2 Ml Vial) 4 mg IV Q6HP PRN PRN Reason: Nausea And Vomiting Carvedilol Phosphate [Coreg Cr] 40 Mg Capsule, Er 1 dose PO DAILY [facility] Last Admin: 08/23/21 09:41 Dose: Not Given Documented by: Polyethylene Glycol (Polyethylene Glycol 3350 17 Gm Packet) 17 gm PO DAILY [facility] Last Admin: 08/23/21 09:41 Dose: Not Given Documented by: Senna (Sennosides 1 Tablet) 2 tab PO BID [facility] Last Admin: 08/23/21 21:51 Dose: Not Given Documented by: Sodium Chloride (0.9 % Sodium Chloride 10 Ml Syringe) 10 ml IV Q8 [facility] Last Admin: 08/24/21 04:32 Dose: 10 ml Documented by: Throat Lozenges (Benzocaine/Menthol 1 Lozenge) 1 lozenge PO PRN PRN PRN Reason: Sore Throat A/P Narrative A/P Narrative: A: #Hip fracture: s/p ORIF (08/21/21) #HTN/HLD: #Depression/anxiety: Plan: -Analgesics prn. -Continue home norvasc/coreg/statin -PT following. 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
[2021-08-24] MEDS: SENNOSIDES 1 TABLET PO SCH ×2 (10:00→20:15)
[2021-08-24] MEDS: GABAPENTIN 300 MG CAPSULE PO SCH ×3 (10:00→20:13)
[2021-08-24] MEDS: AMITRIPTYLINE 25 MG TABLET PO SCH ×2 (10:01→20:14)
[2021-08-24] MEDS: CYCLOBENZAPRINE 10 MG TABLET PO SCH ×2 (10:02→20:14)
[2021-08-24] MEDS: POLYETHYLENE GLYCOL 3350 17 GM PACKET PO SCH (10:03)
[2021-08-24] MEDS: ATORVASTATIN 40 MG TABLET PO SCH (10:03)
[2021-08-24] MEDS: CARVEDILOL PHOSPHATE 40 MG PO SCH (10:04)
[2021-08-24] MEDS: buPROPion 150 MG TAB.XL.24H PO SCH (10:04)
[2021-08-24] MEDS: amLODIPine 10 MG TABLET PO SCH (10:04)
[2021-08-24] MEDS: ENOXAPARIN 30 MG/0.3 ML SYRINGE SQ SCH ×2 (10:05→20:13)
--- NOTE | 2021-08-24 11:00 | Discharge Summary ---
Discharge Provider Provider Patient information: Note initiated : 08/24/21 at 10:59 am Service Date, if different from initiated Date: [] Patient: Saeid Ventura 61 y/o M admitted on 08/20/21 for Broken Femur. Chief Complaint: [] Date of admission: 08/20/21 04:20 Primary care physician: Dayday Lema Consults: 08/20/21 Consult to Physician [CONS] Stat Comment: Consulting Provider: Jose Queen Reason For Exam: Physician to Consult 08/20/21 04:22 Consult to Physician [CONS] Routine Comment: Consulting Provider: Guerda Oneill Reason For Exam: Physician to Consult Discharge Meds Discharge Medications Home Medications amitriptyline 50 mg tablet 50 mg PO BID 08/20/21 [History Confirmed 08/20/21 Last Taken 08/19/21 09:00] amlodipine 10 mg tablet 10 mg PO QDAY 08/20/21 [History Confirmed 08/20/21 Last Taken 08/18/21 21:00] aspirin 81 mg tablet,delayed release 81 mg PO BID #60 tab 08/20/21 [Rx Last Taken Unknown] atorvastatin 80 mg tablet 80 mg PO QDAY 08/20/21 [History Confirmed 08/20/21 Last Taken 08/18/21 21:00] bupropion HCl 150 mg 24 hr tablet, extended release 150 mg PO DAILY 08/20/21 [History Confirmed 08/20/21 Last Taken 08/19/21 09:00] carvedilol phosphate 40 mg capsule,[id number] multiphase (Coreg CR) 40 mg PO QDAY 08/20/21 [History Confirmed 08/20/21 Last Taken 08/19/21 09:00] cyclobenzaprine 5 mg tablet 5 mg PO BID 08/20/21 [History Confirmed 08/20/21 Last Taken 08/19/21 09:00] gabapentin 300 mg capsule 300 mg PO TID 08/20/21 [History Confirmed 08/20/21 Last Taken 08/19/21 09:00] meloxicam 15 mg tablet 15 mg PO QDAY 08/20/21 [History Confirmed 08/20/21 Last Taken Unknown] oxycodone-acetaminophen 10 mg-325 mg tablet 1 tab PO Q4H PRN #60 tab 08/20/21 [Rx Last Taken Unknown] COURSE Hospital Course Hospital course: chief Complaint: [] Principal diagnosis: POD 1 s/p right hip ORIF Interval history: Mr. Ventura is a 61 year old male with a history of hypertension, hyperlipidemia, probable alcohol use disorder admitted for a hip fracture that occurred when the patient slipped and fell on ice. 08/21 The patient underwent ORIF yesterday, restricted to toe touch for the right lower extremity. Will need SNF for rehab. On 3.5 L/min nasal canula oxygen this morning, weaned to 1.5 by the afternoon. 08/22 Pain adequately controlled, on room air. Awaiting placement. 08/23 No overnight event or new complaints. 08/24 No new complaints overnight events. Patient feeling better today. A: #Hip fracture: s/p ORIF (08/21/21) #HTN/HLD: #Depression/anxiety: Discharge diagnosis: Hip fracture Secondary discharge diagnosis: Hypertension hyperlipidemia depression anxiety Time spent discussing smoking cessation with patient: more than 10 minutes Time Spent with Patient Time attestation: Total time spent providing and/or coordinating discharge services: EXAM Constitutional Vitals: Temp Pulse Resp BP Pulse Ox 97.7 F 99 H 20 117/76 93 08/24/21 06:48 08/24/21 04:00 08/24/21 06:48 08/24/21 06:48 08/24/21 08:05 Discharge Plan Patient/Caregiver Discharge Instructions Activity: increase activity as tolerated and other Diet: Regular Diet Activity Restrictions/Additional Instructions: Toe touch weight bearing Prescriptions: New oxycodone-acetaminophen 10-325 mg tablet 1 tab PO Q4H PRN (Reason: pain) Qty: 60 0RF aspirin 81 mg tablet,delayed release (DR/EC) 81 mg PO BID Qty: 60 0RF Continued atorvastatin 80 mg tablet 80 mg PO QDAY 0RF meloxicam 15 mg tablet 15 mg PO QDAY 0RF amitriptyline 50 mg tablet 50 mg PO BID 0RF amlodipine 10 mg tablet 10 mg PO QDAY 0RF gabapentin 300 mg capsule 300 mg PO TID 0RF cyclobenzaprine 5 mg tablet 5 mg PO BID 0RF bupropion HCl 150 mg tablet extended release 24 hr 150 mg PO DAILY 0RF carvedilol phosphate [Coreg CR] 40 mg capsule, ER multiphase 24 hr 40 mg PO QDAY 0RF Follow Up Plan Follow up with: Dayday Lema PA-C [Primary Care Provider] - Eitan Perez MD [Physician] - Patient Disposition: Xfer SNF Prognosis: Fair Rehab Potential: Fair I certify that the patient requires SNF services: Yes Overall status at discharge: patient is progressing back to baseline Discharge Orders: Discharge Order (Routine); Ordered 08/23/21 Ordered By: Eitan Perez QUALITY VTE Deep Vein Thrombosis/Pulmonary Embolism Present on Admission: No
[2021-08-24] MEDS: CALCIUM CARBONATE 500 MG TAB.CHEW CHEWED PRN (20:13)
[2021-08-24] MEDS: MELATONIN 3 MG TABLET PO SCH (20:14)
[2021-08-25] MEDS: HYDROcodone/APAP 5/325MG TABLET PO PRN ×6 (03:14→23:02)
[2021-08-25] MEDS: 0.9 % SODIUM CHLORIDE 10 ML SYRINGE IV SCH ×3 (04:37→20:15)
[2021-08-25] MEDS: SENNOSIDES 1 TABLET PO SCH ×2 (08:25→19:05)
[2021-08-25] MEDS: AMITRIPTYLINE 25 MG TABLET PO SCH ×2 (08:26→19:06)
[2021-08-25] MEDS: GABAPENTIN 300 MG CAPSULE PO SCH ×3 (08:26→19:05)
[2021-08-25] MEDS: CYCLOBENZAPRINE 10 MG TABLET PO SCH ×2 (08:27→19:05)
[2021-08-25] MEDS: amLODIPine 10 MG TABLET PO SCH (08:28)
[2021-08-25] MEDS: ATORVASTATIN 40 MG TABLET PO SCH (08:28)
[2021-08-25] MEDS: buPROPion 150 MG TAB.XL.24H PO SCH (08:28)
[2021-08-25] MEDS: CARVEDILOL PHOSPHATE 40 MG PO SCH (08:29)
[2021-08-25] MEDS: POLYETHYLENE GLYCOL 3350 17 GM PACKET PO SCH (08:29)
[2021-08-25] MEDS: ENOXAPARIN 30 MG/0.3 ML SYRINGE SQ SCH ×2 (08:29→19:07)
--- NOTE | 2021-08-25 10:04 | Internal Med Progress Note ---
SUBJECTIVE Subjective Patient information: Note initiated : 08/25/21 at 10:04 am Service Date, if different from initiated Date: [] Patient: Saeid Ventura 61 y/o M admitted on 08/20/21 for Broken Femur. Chief Complaint: [] Principal diagnosis: POD 1 s/p right hip ORIF Interval history: Mr. Ventura is a 61 year old male with a history of hypertension, hyperlipidemia, probable alcohol use disorder admitted for a hip fracture that occurred when the patient slipped and fell on ice. 08/21 The patient underwent ORIF yesterday, restricted to toe touch for the right lower extremity. Will need SNF for rehab. On 3.5 L/min nasal canula oxygen this morning, weaned to 1.5 by the afternoon. 08/22 Pain adequately controlled, on room air. Awaiting placement. 08/23 No overnight event or new complaints. 08/24 No new complaints overnight events. Patient feeling better today. 08/25 Doing well. Awaiting placement Review of Systems: denies headache/fever/chills/nausea/vomiting/chest or abdominal pain/cough/dyspnea/diarrhea. Otherwise see above. Constitutional Vitals: Vital Signs Temp Pulse Resp BP Pulse Ox 97.8 F 105 H 20 117/69 92 08/25/21 07:14 08/25/21 07:14 08/25/21 07:14 08/25/21 07:14 08/25/21 07:14 Period Temp Pulse Resp BP Sys/Chavez Pulse Ox Last 24 Hr 97.5 F-98.6 F 84-105 16-20 117-126/66-81 92-96 Intake and Output 08/24/21 08/25/21 08/25/21 21:59 05:59 13:59 Intake Total 0 800 240 Output Total 750 200 Balance 0 50 40 Weight 93.157 kg Intake & Output: Intake & Output 08/24/21 08/25/21 08/25/21 21:59 05:59 13:59 Intake Total 0 800 240 Output Total 750 200 Balance 0 50 40 Weight 93.157 kg Intake: Oral 0 800 240 Output: Void Amount 750 200 Other: Meal Breakfast Percent of Meal Consumed 75% Feeding Ability Independent Urine Appearance Clear Clear Clear Urine Color Dark Yellow Dark Yellow Bright Yellow Urine Odor Normal Exam: General: Alert, Awake, No acute Distress Eyes/N/T: EOMI, Head/Neck: neck supple, CV: RRR, No murmurs, n Pulm: Clear b/l, no wheezing/rhonchi/rales Abd: soft, nontender, +BS x4 Ext: no clubbing/cyanosis/edema Neuro: Alert, no focal deficits, moves all extremities, Skin: warm/dry OBJ DATA Labs CBC & Chem 7: 08/21/21 05:14 08/20/21 04:55 Meds: Medications Acetaminophen (Acetaminophen 325 Mg Tablet) 650 mg PO Q6HP PRN; Protocol PRN Reason: Per Pain Protocol/Fever > 101 Hydrocodone Bitart/Acetaminophen (Hydrocodone/Apap 5/325mg Tablet) 1 tab PO Q4HP PRN; Protocol PRN Reason: Per Pain Protocol Last Admin: 08/25/21 07:20 Dose: 1 tab Documented by: Alcohol (Ethyl Alcohol 30 Ml Oral.Elsie) 30 ml PO HSP PRN PRN Reason: Anxiety Amitriptyline HCl (Amitriptyline 25 Mg Tablet) 50 mg PO BID [facility] Last Admin: 08/25/21 08:26 Dose: 50 mg Documented by: Amlodipine Besylate (Amlodipine 10 Mg Tablet) 10 mg PO QDAY [facility] Last Admin: 08/25/21 08:28 Dose: 10 mg Documented by: Atorvastatin Calcium (Atorvastatin 40 Mg Tablet) 80 mg PO DAILY [facility] Last Admin: 08/25/21 08:28 Dose: 80 mg Documented by: Bupropion HCl (Bupropion 150 Mg Tab.Xl.24h) 150 mg PO DAILY [facility] Last Admin: 08/25/21 08:28 Dose: 150 mg Documented by: Calcium Carbonate/Glycine (Calcium Carbonate 500 Mg Tab.Chew) 1,000 mg CHEWED H SP PRN PRN Reason: Dyspepsia Last Admin: 08/24/21 20:13 Dose: 1,000 mg Documented by: Cyclobenzaprine HCl (Cyclobenzaprine 10 Mg Tablet) 5 mg PO BID [facility] Last Admin: 08/25/21 08:27 Dose: 5 mg Documented by: Diphenhydramine HCl (Diphenhydramine 25 Mg Capsule) 25 mg PO HSP PRN PRN Reason: Insomnia Enoxaparin Sodium (Enoxaparin 30 Mg/0.3 Ml Syringe) 30 mg SQ BID [facility] Last Admin: 08/25/21 08:29 Dose: 30 mg Documented by: Gabapentin (Gabapentin 300 Mg Capsule) 300 mg PO TID [facility] Last Admin: 08/25/21 08:26 Dose: 300 mg Documented by: Melatonin (Melatonin 3 Mg Tablet) 3 mg PO HS [facility] Last Admin: 08/24/21 20:14 Dose: 3 mg Documented by: Methocarbamol (Methocarbamol 1,000 Mg/10 Ml Vial) 750 mg IV Q6HP PRN PRN Reason: Muscle Spasm Last Admin: 08/23/21 16:18 Dose: 750 mg Documented by: Morphine Sulfate (Morphine 4 Mg/Ml Vial) 0 mg IV Q1HP PRN; Protocol PRN Reason: Per Pain Protocol Last Admin: 08/23/21 09:47 Dose: 4 mg Documented by: Naloxone HCl (Naloxone Hcl 0.4 Mg/Ml Vial) 0.1 mg IV Q2MIN PRN PRN Reason: Opiate Reversal Ondansetron HCl (Ondansetron 4 Mg/2 Ml Vial) 4 mg IV Q6HP PRN PRN Reason: Nausea And Vomiting Carvedilol Phosphate [Coreg Cr] 40 Mg Capsule, Er 1 dose PO DAILY [facility] Last Admin: 08/25/21 08:29 Dose: Not Given Documented by: Polyethylene Glycol (Polyethylene Glycol 3350 17 Gm Packet) 17 gm PO DAILY [facility] Last Admin: 08/25/21 08:29 Dose: Not Given Documented by: Senna (Sennosides 1 Tablet) 2 tab PO BID [facility] Last Admin: 08/25/21 08:25 Dose: 2 tab Documented by: Sodium Chloride (0.9 % Sodium Chloride 10 Ml Syringe) 10 ml IV Q8 [facility] Last Admin: 08/25/21 04:37 Dose: 10 ml Documented by: Throat Lozenges (Benzocaine/Menthol 1 Lozenge) 1 lozenge PO PRN PRN PRN Reason: Sore Throat A/P Narrative A/P Narrative: A: #Hip fracture: s/p ORIF (08/21/21) #HTN/HLD: #Depression/anxiety: Plan: -Analgesics prn. -Continue home norvasc/coreg/statin -PT following. 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
[2021-08-25] MEDS: MELATONIN 3 MG TABLET PO SCH (19:06)
[2021-08-26] MEDS: HYDROcodone/APAP 5/325MG TABLET PO PRN ×5 (02:58→21:52)
[2021-08-26] MEDS: 0.9 % SODIUM CHLORIDE 10 ML SYRINGE IV SCH ×3 (04:27→21:55)
--- NOTE | 2021-08-26 07:58 | Internal Med Progress Note ---
SUBJECTIVE Subjective Patient information: Note initiated : 08/26/21 at 7:57 am Service Date, if different from initiated Date: [] Patient: Saeid Ventura 61 y/o M admitted on 08/20/21 for Broken Femur. Chief Complaint: [] Principal diagnosis: POD 1 s/p right hip ORIF Interval history: Mr. Ventura is a 61 year old male with a history of hypertension, hyperlipidemia, probable alcohol use disorder admitted for a hip fracture that occurred when the patient slipped and fell on ice. 08/21 The patient underwent ORIF yesterday, restricted to toe touch for the right lower extremity. Will need SNF for rehab. On 3.5 L/min nasal canula oxygen this morning, weaned to 1.5 by the afternoon. 08/22 Pain adequately controlled, on room air. Awaiting placement. 08/23 No overnight event or new complaints. 08/24 No new complaints overnight events. Patient feeling better today. 08/25 Doing well. Awaiting placement 08/26 No overnight event or new complaints. Awaiting placement. Review of Systems: denies headache/fever/chills/nausea/vomiting/chest or abdominal pain/cough/dyspnea/diarrhea. Otherwise see above. Constitutional Vitals: Vital Signs Temp Pulse Resp BP Pulse Ox 96.7 F L 86 18 127/76 90 08/26/21 07:16 08/26/21 07:16 08/26/21 07:16 08/26/21 07:16 08/26/21 07:16 Period Temp Pulse Resp BP Sys/Chavez Pulse Ox Last 24 Hr 96.7 F-100.0 F 86-112 16-20 106-127/62-80 90-97 Intake and Output 08/25/21 08/26/21 08/26/21 21:59 05:59 13:59 Intake Total 550 Output Total 320 355 225 Balance 230 -355 -225 Weight 95.118 kg Intake & Output: Intake & Output 08/25/21 08/26/21 08/26/21 21:59 05:59 13:59 Intake Total 550 Output Total 320 355 225 Balance 230 -355 -225 Weight 95.118 kg Intake: GI Tube Flush 550 Output: Void Amount 320 355 225 Other: Meal Lunch Percent of Meal Consumed 75% Feeding Ability Assist with Tray Set Up Urine Appearance Clear Urine Color Bright Yellow Urine Odor Normal Exam: General: Alert, Awake, No acute Distress Eyes/N/T: EOMI, Head/Neck: neck supple, CV: RRR, No murmurs, n Pulm: Clear b/l, no wheezing/rhonchi/rales Abd: soft, nontender, +BS x4 Ext: no clubbing/cyanosis/edema Neuro: Alert, no focal deficits, moves all extremities, Skin: warm/dry OBJ DATA Labs CBC & Chem 7: 08/21/21 05:14 08/20/21 04:55 Meds: Medications Acetaminophen (Acetaminophen 325 Mg Tablet) 650 mg PO Q6HP PRN; Protocol PRN Reason: Per Pain Protocol/Fever > 101 Hydrocodone Bitart/Acetaminophen (Hydrocodone/Apap 5/325mg Tablet) 1 tab PO Q4HP PRN; Protocol PRN Reason: Per Pain Protocol Last Admin: 08/26/21 02:58 Dose: 1 tab Documented by: Alcohol (Ethyl Alcohol 30 Ml Oral.Elsie) 30 ml PO HSP PRN PRN Reason: Anxiety Amitriptyline HCl (Amitriptyline 25 Mg Tablet) 50 mg PO BID [facility] Last Admin: 08/25/21 19:06 Dose: 50 mg Documented by: Amlodipine Besylate (Amlodipine 10 Mg Tablet) 10 mg PO QDAY [facility] Last Admin: 08/25/21 08:28 Dose: 10 mg Documented by: Atorvastatin Calcium (Atorvastatin 40 Mg Tablet) 80 mg PO DAILY [facility] Last Admin: 08/25/21 08:28 Dose: 80 mg Documented by: Bupropion HCl (Bupropion 150 Mg Tab.Xl.24h) 150 mg PO DAILY [facility] Last Admin: 08/25/21 08:28 Dose: 150 mg Documented by: Calcium Carbonate/Glycine (Calcium Carbonate 500 Mg Tab.Chew) 1,000 mg CHEWED HSP PRN PRN Reason: Dyspepsia Last Admin: 08/24/21 20:13 Dose: 1,000 mg Documented by: Cyclobenzaprine HCl (Cyclobenzaprine 10 Mg Tablet) 5 mg PO BID [facility] Last Admin: 08/25/21 19:05 Dose: 5 mg Documented by: Diphenhydramine HCl (Diphenhydramine 25 Mg Capsule) 25 mg PO HSP PRN PRN Reason: Insomnia Enoxaparin Sodium (Enoxaparin 30 Mg/0.3 Ml Syringe) 30 mg SQ BID [facility] Last Admin: 08/25/21 19:07 Dose: 30 mg Documented by: Gabapentin (Gabapentin 300 Mg Capsule) 300 mg PO TID [facility] Last Admin: 08/25/21 19:05 Dose: 300 mg Documented by: Melatonin (Melatonin 3 Mg Tablet) 3 mg PO HS [facility] Last Admin: 08/25/21 19:06 Dose: 3 mg Documented by: Methocarbamol (Methocarbamol 1,000 Mg/10 Ml Vial) 750 mg IV Q6HP PRN PRN Reason: Muscle Spasm Last Admin: 08/23/21 16:18 Dose: 750 mg Documented by: Morphine Sulfate (Morphine 4 Mg/Ml Vial) 0 mg IV Q1HP PRN; Protocol PRN Reason: Per Pain Protocol Last Admin: 08/23/21 09:47 Dose: 4 mg Documented by: Naloxone HCl (Naloxone Hcl 0.4 Mg/Ml Vial) 0.1 mg IV Q2MIN PRN PRN Reason: Opiate Reversal Ondansetron HCl (Ondansetron 4 Mg/2 Ml Vial) 4 mg IV Q6HP PRN PRN Reason: Nausea And Vomiting Carvedilol Phosphate [Coreg Cr] 40 Mg Capsule, Er 1 dose PO DAILY [facility] Last Admin: 08/25/21 08:29 Dose: Not Given Documented by: Polyethylene Glycol (Polyethylene Glycol 3350 17 Gm Packet) 17 gm PO DAILY [facility] Last Admin: 08/25/21 08:29 Dose: Not Given Documented by: Senna (Sennosides 1 Tablet) 2 tab PO BID [facility] Last Admin: 08/25/21 19:05 Dose: 2 tab Documented by: Sodium Chloride (0.9 % Sodium Chloride 10 Ml Syringe) 10 ml IV Q8 [facility] Last Admin: 08/26/21 04:27 Dose: Not Given Documented by: Throat Lozenges (Benzocaine/Menthol 1 Lozenge) 1 lozenge PO PRN PRN PRN Reason: Sore Throat A/P Narrative A/P Narrative: A: #Hip fracture: s/p ORIF (08/21/21) #HTN/HLD: #Depression/anxiety: Plan: -Analgesics prn. -Continue home norvasc/coreg/statin -PT following. 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
[2021-08-26] MEDS: CYCLOBENZAPRINE 10 MG TABLET PO SCH ×2 (08:15→21:54)
[2021-08-26] MEDS: buPROPion 150 MG TAB.XL.24H PO SCH (08:15)
[2021-08-26] MEDS: ENOXAPARIN 30 MG/0.3 ML SYRINGE SQ SCH ×2 (08:15→21:54)
[2021-08-26] MEDS: GABAPENTIN 300 MG CAPSULE PO SCH ×3 (08:15→21:52)
[2021-08-26] MEDS: AMITRIPTYLINE 25 MG TABLET PO SCH ×2 (08:16→21:53)
[2021-08-26] MEDS: amLODIPine 10 MG TABLET PO SCH (08:16)
[2021-08-26] MEDS: SENNOSIDES 1 TABLET PO SCH ×2 (08:16→21:53)
[2021-08-26] MEDS: ATORVASTATIN 40 MG TABLET PO SCH (08:16)
[2021-08-26] MEDS: POLYETHYLENE GLYCOL 3350 17 GM PACKET PO SCH (08:16)
[2021-08-26] MEDS: CARVEDILOL PHOSPHATE 40 MG PO SCH (08:28)
[2021-08-26] MEDS: METHOCARBAMOL 1,000 MG/10 ML VIAL IV PRN (14:34)
[2021-08-26] MEDS: MELATONIN 3 MG TABLET PO SCH (21:53)
[2021-08-27] MEDS: HYDROcodone/APAP 5/325MG TABLET PO PRN ×5 (02:41→23:43)
[2021-08-27] MEDS: 0.9 % SODIUM CHLORIDE 10 ML SYRINGE IV SCH ×3 (05:10→20:11)
--- NOTE | 2021-08-27 08:10 | Internal Med Progress Note ---
SUBJECTIVE Subjective Patient information: Note initiated : 08/27/21 at 8:09 am Service Date, if different from initiated Date: [] Patient: Saeid Ventura 61 y/o M admitted on 08/20/21 for Broken Femur. Chief Complaint: [] Principal diagnosis: POD 1 s/p right hip ORIF Interval history: Mr. Ventura is a 61 year old male with a history of hypertension, hyperlipidemia, probable alcohol use disorder admitted for a hip fracture that occurred when the patient slipped and fell on ice. 08/21 The patient underwent ORIF yesterday, restricted to toe touch for the right lower extremity. Will need SNF for rehab. On 3.5 L/min nasal canula oxygen this morning, weaned to 1.5 by the afternoon. 08/22 Pain adequately controlled, on room air. Awaiting placement. 08/23 No overnight event or new complaints. 08/24 No new complaints overnight events. Patient feeling better today. 08/25 Doing well. Awaiting placement 08/26 No overnight event or new complaints. Awaiting placement. 08/27 Changes. Awaiting placement. Review of Systems: denies headache/fever/chills/nausea/vomiting/chest or abdominal pain/cough/dyspnea/diarrhea. Otherwise see above. Constitutional Vitals: Vital Signs Temp Pulse Resp BP Pulse Ox 97.9 F 85 17 131/75 90 08/27/21 07:53 08/27/21 07:53 08/27/21 07:53 08/27/21 07:53 08/27/21 07:53 Period Temp Pulse Resp BP Sys/Chavez Pulse Ox Last 24 Hr 96.7 F-98.7 F 82-97 17-24 99-141/69-81 90-95 Intake and Output 08/26/21 08/27/21 08/27/21 21:59 05:59 13:59 Intake Total 800 300 Output Total 500 500 200 Balance 300 -200 -200 Weight 94.12 kg Intake & Output: Intake & Output 08/26/21 08/27/21 08/27/21 21:59 05:59 13:59 Intake Total 800 300 Output Total 500 500 200 Balance 300 -200 -200 Weight 94.12 kg Intake: Oral 800 300 Output: Void Amount 500 500 200 Other: # Voids 1 Exam: General: Alert, Awake, No acute Distress Eyes/N/T: EOMI, Head/Neck: neck supple, CV: RRR, No murmurs, n Pulm: Clear b/l, no wheezing/rhonchi/rales Abd: soft, nontender, +BS x4 Ext: no clubbing/cyanosis/edema Neuro: Alert, no focal deficits, moves all extremities, Skin: warm/dry OBJ DATA Labs CBC & Chem 7: 08/21/21 05:14 08/20/21 04:55 Meds: Medications Acetaminophen (Acetaminophen 325 Mg Tablet) 650 mg PO Q6HP PRN; Protocol PRN Reason: Per Pain Protocol/Fever > 101 Hydrocodone Bitart/Acetaminophen (Hydrocodone/Apap 5/325mg Tablet) 1 tab PO Q4HP PRN; Protocol PRN Reason: Per Pain Protocol Last Admin: 08/27/21 02:41 Dose: 1 tab Documented by: Alcohol (Ethyl Alcohol 30 Ml Oral.Elsie) 30 ml PO HSP PRN PRN Reason: Anxiety Amitriptyline HCl (Amitriptyline 25 Mg Tablet) 50 mg PO BID [facility] Last Admin: 08/26/21 21:53 Dose: 50 mg Documented by: Amlodipine Besylate (Amlodipine 10 Mg Tablet) 10 mg PO QDAY [facility] Last Admin: 08/26/21 08:16 Dose: 10 mg Documented by: Atorvastatin Calcium (Atorvastatin 40 Mg Tablet) 80 mg PO DAILY [facility] Last Admin: 08/26/21 08:16 Dose: 80 mg Documented by: Bupropion HCl (Bupropion 150 Mg Tab.Xl.24h) 150 mg PO DAILY [facility] Last Admin: 08/26/21 08:15 Dose: 150 mg Documented by: Calcium Carbonate/Glycine (Calcium Carbonate 500 Mg Tab.Chew) 1,000 mg CHEWED HSP PRN PRN Reason: Dyspepsia Last Admin: 08/24/21 20:13 Dose: 1,000 mg Documented by: Cyclobenzaprine HCl (Cyclobenzaprine 10 Mg Tablet) 5 mg PO BID [facility] Last Admin: 08/26/21 21:54 Dose: 5 mg Documented by: Diphenhydramine HCl (Diphenhydramine 25 Mg Capsule) 25 mg PO HSP PRN PRN Reason: Insomnia Enoxaparin Sodium (Enoxaparin 30 Mg/0.3 Ml Syringe) 30 mg SQ BID [facility] Last Admin: 08/26/21 21:54 Dose: 30 mg Documented by: Gabapentin (Gabapentin 300 Mg Capsule) 300 mg PO TID [facility] Last Admin: 08/26/21 21:52 Dose: 300 mg Documented by: Melatonin (Melatonin 3 Mg Tablet) 3 mg PO HS [facility] Last Admin: 08/26/21 21:53 Dose: 3 mg Documented by: Methocarbamol (Methocarbamol 1,000 Mg/10 Ml Vial) 750 mg IV Q6HP PRN PRN Reason: Muscle Spasm Last Admin: 08/26/21 14:34 Dose: 750 mg Documented by: Morphine Sulfate (Morphine 4 Mg/Ml Vial) 0 mg IV Q1HP PRN; Protocol PRN Reason: Per Pain Protocol Last Admin: 08/23/21 09:47 Dose: 4 mg Documented by: Naloxone HCl (Naloxone Hcl 0.4 Mg/Ml Vial) 0.1 mg IV Q2MIN PRN PRN Reason: Opiate Reversal Ondansetron HCl (Ondansetron 4 Mg/2 Ml Vial) 4 mg IV Q6HP PRN PRN Reason: Nausea And Vomiting Carvedilol Phosphate [Coreg Cr] 40 Mg Capsule, Er 1 dose PO DAILY [facility] Last Admin: 08/26/21 08:28 Dose: Not Given Documented by: Polyethylene Glycol (Polyethylene Glycol 3350 17 Gm Packet) 17 gm PO DAILY [facility] Last Admin: 08/26/21 08:16 Dose: Not Given Documented by: Senna (Sennosides 1 Tablet) 2 tab PO BID [facility] Last Admin: 08/26/21 21:53 Dose: 2 tab Documented by: Sodium Chloride (0.9 % Sodium Chloride 10 Ml Syringe) 10 ml IV Q8 [facility] Last Admin: 08/27/21 05:10 Dose: 10 ml Documented by: Throat Lozenges (Benzocaine/Menthol 1 Lozenge) 1 lozenge PO PRN PRN PRN Reason: Sore Throat A/P Narrative A/P Narrative: A: #Hip fracture: s/p ORIF (08/21/21) #HTN/HLD: #Depression/anxiety: Plan: -Analgesics prn. -Continue home norvasc/coreg/statin -PT following. -Disposition SNF for rehab, -ppx: Lovenox SQ per ortho Code status: Remnant Sorter Spent With Patient Time: Total time spent is greater than 50% in coordination of care (as documented) at patient's floor/unit and/or counseling patient: QUALITY VTE Deep Vein Thrombosis/Pulmonary Embolism Present on Admission: No
[2021-08-27] MEDS: SENNOSIDES 1 TABLET PO SCH ×2 (08:54→20:10)
[2021-08-27] MEDS: buPROPion 150 MG TAB.XL.24H PO SCH (08:54)
[2021-08-27] MEDS: CYCLOBENZAPRINE 10 MG TABLET PO SCH ×2 (08:55→20:10)
[2021-08-27] MEDS: GABAPENTIN 300 MG CAPSULE PO SCH ×3 (08:55→20:10)
[2021-08-27] MEDS: AMITRIPTYLINE 25 MG TABLET PO SCH ×2 (08:55→20:11)
[2021-08-27] MEDS: ATORVASTATIN 40 MG TABLET PO SCH (08:55)
[2021-08-27] MEDS: amLODIPine 10 MG TABLET PO SCH (08:55)
[2021-08-27] MEDS: POLYETHYLENE GLYCOL 3350 17 GM PACKET PO SCH (08:55)
[2021-08-27] MEDS: ENOXAPARIN 30 MG/0.3 ML SYRINGE SQ SCH ×2 (08:55→20:11)
[2021-08-27] MEDS: CARVEDILOL PHOSPHATE 40 MG PO SCH (09:12)
[2021-08-27] MEDS: MELATONIN 3 MG TABLET PO SCH (20:10)
[2021-08-28] MEDS: 0.9 % SODIUM CHLORIDE 10 ML SYRINGE IV SCH ×3 (09:28→20:05)
[2021-08-28] MEDS: CYCLOBENZAPRINE 10 MG TABLET PO SCH ×2 (11:40→22:05)
[2021-08-28] MEDS: buPROPion 150 MG TAB.XL.24H PO SCH (11:40)
[2021-08-28] MEDS: AMITRIPTYLINE 25 MG TABLET PO SCH ×2 (11:40→22:05)
[2021-08-28] MEDS: ATORVASTATIN 40 MG TABLET PO SCH (11:40)
[2021-08-28] MEDS: HYDROcodone/APAP 5/325MG TABLET PO PRN ×3 (11:41→22:20)
[2021-08-28] MEDS: amLODIPine 10 MG TABLET PO SCH (11:41)
[2021-08-28] MEDS: ENOXAPARIN 30 MG/0.3 ML SYRINGE SQ SCH ×2 (11:43→22:05)
[2021-08-28] MEDS: CARVEDILOL PHOSPHATE 40 MG PO SCH (11:43)
[2021-08-28] MEDS: GABAPENTIN 300 MG CAPSULE PO SCH ×3 (11:43→22:05)
[2021-08-28] MEDS: POLYETHYLENE GLYCOL 3350 17 GM PACKET PO SCH (11:43)
[2021-08-28] MEDS: SENNOSIDES 1 TABLET PO SCH ×2 (11:44→23:02)
--- NOTE | 2021-08-28 12:03 | Internal Med Progress Note ---
SUBJECTIVE Subjective Patient information: Note initiated : 08/28/21 at 11:57 am Service Date, if different from initiated Date: [] Patient: Saeid Ventura 61 y/o M admitted on 08/20/21 for Broken Femur. Chief Complaint: [right hip fracture] Principal diagnosis: POD 1 s/p right hip ORIF Interval history: Mr. Ventura is a 61 year old male with a history of hypertension, hyperlipidemia, probable alcohol use disorder admitted for a hip fracture that occurred when the patient slipped and fell on ice. 08/21 The patient underwent ORIF yesterday, restricted to toe touch for the right lower extremity. Will need SNF for rehab. On 3.5 L/min nasal canula oxygen this morning, weaned to 1.5 by the afternoon. 08/22 Pain adequately controlled, on room air. Awaiting placement. 08/23 No overnight event or new complaints. 08/24 No new complaints overnight events. Patient feeling better today. 08/25 Doing well. Awaiting placement 08/26 No overnight event or new complaints. Awaiting placement. 08/27 Changes. Awaiting placement. 08/28: Tested positive for CoVID both angelito and Benavides. On room air and totally asymptomatic. c/o 8/ constant aching pain right hip. Otherwise there is no other major overnight events. Need 10 days quarantine before able to discharge patient to rehab facility. Constitutional Vitals: Vital Signs Temp Pulse Resp BP Pulse Ox 36.2 C 82 16 120/74 97 08/28/21 11:11 08/28/21 11:11 08/28/21 11:11 08/28/21 11:11 08/28/21 11:11 Period Temp Pulse Resp BP Sys/Chavez Pulse Ox Last 24 Hr 35.7 C-36.9 C 82-96 16-20 101-136/66-74 90-97 Intake and Output 08/27/21 08/28/21 08/28/21 21:59 05:59 13:59 Intake Total 3370 400 Output Total 1250 450 400 Balance 2120 -50 -400 Weight 94.347 kg Intake & Output: Intake & Output 08/27/21 08/28/21 08/28/21 21:59 05:59 13:59 Intake Total 3370 400 Output Total 1250 450 400 Balance 2120 -50 -400 Weight 94.347 kg Intake: Oral 3370 400 Output: Void Amount 1250 450 400 Other: Meal Dinner Percent of Meal Consumed 100% Feeding Ability Independent Urine Appearance Clear Clear Urine Color Dark Yellow Bright Yellow Urine Odor Normal # Voids 1 Head Head exam: Present atraumatic and normal inspection Eye Eye exam: Present normal appearance ENT ENT exam: Present mucous membranes moist, normal exam and normal external ear exam Neck Neck exam: Present normal inspection Respiratory Respiratory exam: Present normal respiratory exam Cardiovascular Cardiovascular exam: Present normal rate and rhythm GI/Abdominal GI/Abdominal exam: Present normal bowel sounds Extremities Exam Extremities exam: Present tenderness; Absent full ROM or normal inspection Back Exam Back exam: Present normal inspection Neurological Exam Neurological exam: Present alert and oriented X3 Skin Skin exam: Present intact and warm OBJ DATA Labs CBC & Chem 7: 08/21/21 05:14 08/20/21 04:55 Meds: Medications Acetaminophen (Acetaminophen 325 Mg Tablet) 650 mg PO Q6HP PRN; Protocol PRN Reason: Per Pain Protocol/Fever > 101 Hydrocodone Bitart/Acetaminophen (Hydrocodone/Apap 5/325mg Tablet) 1 tab PO Q4HP PRN; Protocol PRN Reason: Per Pain Protocol Last Admin: 08/28/21 11:41 Dose: 1 tab Documented by: Alcohol (Ethyl Alcohol 30 Ml Oral.Elsie) 30 ml PO HSP PRN PRN Reason: Anxiety Amitriptyline HCl (Amitriptyline 25 Mg Tablet) 50 mg PO BID [facility] Last Admin: 08/28/21 11:40 Dose: 50 mg Documented by: Amlodipine Besylate (Amlodipine 10 Mg Tablet) 10 mg PO QDAY [facility] Last Admin: 08/28/21 11:41 Dose: 10 mg Documented by: Atorvastatin Calcium (Atorvastatin 40 Mg Tablet) 80 mg PO DAILY [facility] Last Admin: 08/28/21 11:40 Dose: 80 mg Documented by: Bupropion HCl (Bupropion 150 Mg Tab.Xl.24h) 150 mg PO DAILY [facility] Last Admin: 08/28/21 11:40 Dose: 150 mg Documented by: Calcium Carbonate/Glycine (Calcium Carbonate 500 Mg Tab.Chew) 1,000 mg CHEWED HSP PRN PRN Reason: Dyspepsia Last Admin: 08/24/21 20:13 Dose: 1,000 mg Documented by: Cyclobenzaprine HCl (Cyclobenzaprine 10 Mg Tablet) 5 mg PO BID [facility] Last Admin: 08/28/21 11:40 Dose: 5 mg Documented by: Diphenhydramine HCl (Diphenhydramine 25 Mg Capsule) 25 mg PO HSP PRN PRN Reason: Insomnia Enoxaparin Sodium (Enoxaparin 30 Mg/0.3 Ml Syringe) 30 mg SQ BID [facility] Last Admin: 08/28/21 11:43 Dose: 30 mg Documented by: Gabapentin (Gabapentin 300 Mg Capsule) 300 mg PO TID [facility] Last Admin: 08/28/21 11:43 Dose: 300 mg Documented by: Melatonin (Melatonin 3 Mg Tablet) 3 mg PO HS [facility] Last Admin: 08/27/21 20:10 Dose: 3 mg Documented by: Methocarbamol (Methocarbamol 1,000 Mg/10 Ml Vial) 750 mg IV Q6HP PRN PRN Reason: Muscle Spasm Last Admin: 08/26/21 14:34 Dose: 750 mg Documented by: Morphine Sulfate (Morphine 4 Mg/Ml Vial) 0 mg IV Q1HP PRN; Protocol PRN Reason: Per Pain Protocol Last Admin: 08/23/21 09:47 Dose: 4 mg Documented by: Naloxone HCl (Naloxone Hcl 0.4 Mg/Ml Vial) 0.1 mg IV Q2MIN PRN PRN Reason: Opiate Reversal Ondansetron HCl (Ondansetron 4 Mg/2 Ml Vial) 4 mg IV Q6HP PRN PRN Reason: Nausea And Vomiting Carvedilol Phosphate [Coreg Cr] 40 Mg Capsule, Er 1 dose PO DAILY [facility] Last Admin: 08/28/21 11:43 Dose: Not Given Documented by: Polyethylene Glycol (Polyethylene Glycol 3350 17 Gm Packet) 17 gm PO DAILY [facility] Last Admin: 08/28/21 11:43 Dose: Not Given Documented by: Senna (Sennosides 1 Tablet) 2 tab PO BID [facility] Last Admin: 08/28/21 11:44 Dose: 2 tab Documented by: Sodium Chloride (0.9 % Sodium Chloride 10 Ml Syringe) 10 ml IV Q8 [facility] Last Admin: 08/28/21 09:28 Dose: Not Given Documented by: Throat Lozenges (Benzocaine/Menthol 1 Lozenge) 1 lozenge PO PRN PRN PRN Reason: Sore Throat A/P Assessment and plan (1) Closed fracture of right hip: Status: Acute Qualifiers: Encounter type: initial encounter Qualified Code(s): S72.001A - Fracture of unspecified part of neck of right femur, initial encounter for closed fracture (2) COVID-19: Status: Acute Narrative A/P Narrative: Assessment and Plans: 1. Right hip fracture s/p ORIF by orthopedic surgeon Dr. Perez 08/30 Continue post-op care with narcotics for pain management with Flexeril, [place], Robaxin, and Morphine. Lovenox BID as post-operative DVT ppx 2. Asymptomatic CoVID infection: Positive for both angelito and Benavides Totally asymptomatic and on room air Need 10 days quarantine before able to discharge patient to rehab facility GI ppx: not currently indicated DVT ppx: Lovenox Code status: Full Prognosis: stable Disposition: Need 10 days quarantine before able to discharge patient to rehab facility Time Spent With Patient Time: Total time spent is greater than 50% in coordination of care (as documented) at patient's floor/unit and/or counseling patient: Total time spent with greater than 50% in coordination of care (as documented) at patient's floor/unit and/or counseling patient:: 25 - 35 minutes QUALITY VTE Deep Vein Thrombosis/Pulmonary Embolism Present on Admission: No
[2021-08-28] MEDS: METHOCARBAMOL 1,000 MG/10 ML VIAL IV PRN (20:04)
[2021-08-28] MEDS: MELATONIN 3 MG TABLET PO SCH (22:05)
[2021-08-29] MEDS: 0.9 % SODIUM CHLORIDE 10 ML SYRINGE IV SCH (08:12)
[2021-08-29] MEDS: ENOXAPARIN 30 MG/0.3 ML SYRINGE SQ SCH (08:12)
[2021-08-29] MEDS: HYDROcodone/APAP 5/325MG TABLET PO PRN ×2 (08:13→11:13)
[2021-08-29] MEDS: SENNOSIDES 1 TABLET PO SCH (08:13)
[2021-08-29] MEDS: buPROPion 150 MG TAB.XL.24H PO SCH (08:13)
[2021-08-29] MEDS: ATORVASTATIN 40 MG TABLET PO SCH (08:13)
[2021-08-29] MEDS: GABAPENTIN 300 MG CAPSULE PO SCH (08:13)
[2021-08-29] MEDS: CYCLOBENZAPRINE 10 MG TABLET PO SCH (08:13)
[2021-08-29] MEDS: AMITRIPTYLINE 25 MG TABLET PO SCH (08:14)
[2021-08-29] MEDS: CARVEDILOL PHOSPHATE 40 MG PO SCH (08:14)
[2021-08-29] MEDS: POLYETHYLENE GLYCOL 3350 17 GM PACKET PO SCH (08:14)
[2021-08-29] MEDS: amLODIPine 10 MG TABLET PO SCH (08:14)
--- NOTE | 2021-08-29 10:52 | Discharge Summary ---
Discharge Provider Provider Patient information: Note initiated : 08/29/21 at 10:48 am Service Date, if different from initiated Date: [] Patient: Saeid Ventura 61 y/o M admitted on 08/20/21 for Broken Femur. Chief Complaint: [] Date of admission: 08/20/21 04:20 Discharge date: 08/29/21 Primary care physician: Dayday Lema Attending physician on admission: Mitch Wooten Consults: 08/20/21 Consult to Physician [CONS] Stat Comment: Consulting Provider: Jose Queen Reason For Exam: Physician to Consult 08/20/21 04:22 Consult to Physician [CONS] Routine Comment: Consulting Provider: Guerda Oneill Reason For Exam: Physician to Consult Attending physician on discharge: Mitch Wooten Discharge Meds Discharge Medications Home Medications amitriptyline 50 mg tablet 50 mg PO BID 08/20/21 [History Confirmed 08/20/21 Last Taken 08/19/21 09:00] amlodipine 10 mg tablet 10 mg PO QDAY 08/20/21 [History Confirmed 08/20/21 Last Taken 08/18/21 21:00] aspirin 81 mg tablet,delayed release 81 mg PO BID #60 tab 08/20/21 [Rx Last Taken Unknown] atorvastatin 80 mg tablet 80 mg PO QDAY 08/20/21 [History Confirmed 08/20/21 Last Taken 08/18/21 21:00] bupropion HCl 150 mg 24 hr tablet, extended release 150 mg PO DAILY 08/20/21 [History Confirmed 08/20/21 Last Taken 08/19/21 09:00] carvedilol phosphate 40 mg capsule,[id number] multiphase (Coreg CR) 40 mg PO QDAY 08/20/21 [History Confirmed 08/20/21 Last Taken 08/19/21 09:00] cyclobenzaprine 5 mg tablet 5 mg PO BID 08/20/21 [History Confirmed 08/20/21 Last Taken 08/19/21 09:00] gabapentin 300 mg capsule 300 mg PO TID 08/20/21 [History Confirmed 08/20/21 Last Taken 08/19/21 09:00] meloxicam 15 mg tablet 15 mg PO QDAY 08/20/21 [History Confirmed 08/20/21 Last Taken Unknown] oxycodone-acetaminophen 10 mg-325 mg tablet 1 tab PO Q4H PRN #60 tab 08/20/21 [Rx Last Taken Unknown] COURSE Hospital Course Hospital course: Mr. Ventura is a 61 year old male with a history of hypertension, hyperlipidemia, probable alcohol use disorder admitted for a hip fracture that occurred when the patient slipped and fell on ice. 08/21 The patient underwent ORIF yesterday, restricted to toe touch for the right lower extremity. Will need SNF for rehab. On 3.5 L/min nasal canula oxygen this morning, weaned to 1.5 by the afternoon. 08/22 Pain adequately controlled, on room air. Awaiting placement. 08/23 No overnight event or new complaints. 08/24 No new complaints overnight events. Patient feeling better today. 08/25 Doing well. Awaiting placement 08/26 No overnight event or new complaints. Awaiting placement. 08/27 Changes. Awaiting placement. 08/28: Tested positive for CoVID both angelito and [place]. On room air and totally asymptomatic. c/o 03/18 constant aching pain right hip. Otherwise there is no other major overnight events. Need 10 days quarantine before able to discharge patient to rehab facility. 08/29: Been clinically stable. Accepted by SNF. Discharged. All questions were answered prior to patient being physically discharged. Discharge diagnosis: SNF Time Spent with Patient Time attestation: Total time spent providing and/or coordinating discharge services: Time spent: Less than 30 minutes EXAM Constitutional Vitals: Temp Pulse Resp BP Pulse Ox 36.0 C L 84 16 126/62 95 08/29/21 06:40 08/29/21 06:40 08/29/21 06:40 08/29/21 06:40 08/29/21 06:40 General appearance: cooperative and no acute distress Head Head exam: Present atraumatic and normocephalic Eye Eye exam: Present EOMI and PERRL ENT ENT exam: Present mucous membranes moist, normal exam and normal external ear exam Neck Neck exam: Present normal inspection; Absent lymphadenopathy, tenderness or thyromegaly Respiratory Respiratory exam: Absent accessory muscle use, respiratory distress or wheezes Cardiovascular Cardiovascular exam: Present normal rate and rhythm; Absent JVD GI/Abdominal GI/Abdominal exam: Present normal bowel sounds and soft; Absent organomegaly or tenderness Rectal Rectal exam: Present deferred Extremities Exam Extremities exam: Present normal capillary refill and tenderness; Absent full ROM or normal inspection Neurological Exam Neurological exam: Present alert, CN II-XII intact and oriented X3; Absent motor sensory deficit Psychiatric Psychiatric exam: Present normal affect and normal mood; Absent anxious or depressed Skin Skin exam: Present dry and intact Discharge Plan Patient/Caregiver Discharge Instructions Activity: increase activity as tolerated and other Diet: Regular Diet Activity Restrictions/Additional Instructions: Toe touch weight bearing Prescriptions: New oxycodone-acetaminophen 10-325 mg tablet 1 tab PO Q4H PRN (Reason: pain) Qty: 60 0RF aspirin 81 mg tablet,delayed release (DR/EC) 81 mg PO BID Qty: 60 0RF Continued atorvastatin 80 mg tablet 80 mg PO QDAY 0RF meloxicam 15 mg tablet 15 mg PO QDAY 0RF amitriptyline 50 mg tablet 50 mg PO BID 0RF amlodipine 10 mg tablet 10 mg PO QDAY 0RF gabapentin 300 mg capsule 300 mg PO TID 0RF cyclobenzaprine 5 mg tablet 5 mg PO BID 0RF bupropion HCl 150 mg tablet extended release 24 hr 150 mg PO DAILY 0RF carvedilol phosphate [Coreg CR] 40 mg capsule, ER multiphase 24 hr 40 mg PO QDAY 0RF Follow Up Plan Follow up with: Dayday Lema PA-C [Primary Care Provider] - Eitan Perez MD [Physician] - Patient Disposition: Xfer SNF Prognosis: Fair Rehab Potential: Fair I certify that the patient requires SNF services: Yes Overall status at discharge: patient is progressing back to baseline Discharge Orders: Discharge Order (Routine); Ordered 08/29/21 Ordered By: Eitan Perez QUALITY VTE Deep Vein Thrombosis/Pulmonary Embolism Present on Admission: No
== END 2021-08-29 11:30 | DRG 480 ==
LOC: ED 02:32 → MEDSUR 04:20 → SUATTDRO 04:20 → MERGE 04:20 → MEDSUR 08-25 13:40
PROVIDERS: ADMIT Internal Medicine; ATTEND Internal Medicine